=== PATIENT | male | born 1975 | race Caucasian/White ===

== ENCOUNTER 2018-04-18 13:59 | Inpatient (IN) | payer BC ==
[~2018-04-18] VITALS: Ht 185.4 cm; Wt 113.1 kg
[~2018-04-18 13:59] MED LIST: DOXY100C2 PO; IBUP-15 PO
--- OUTSIDE RECORDS SUMMARY | 2018-04-18 14:06 | XMS REPORT | CCD ---
Author Author [facility] Organization [facility] Address [address] [place] [address] Phone Care Team Providers Care Um Specialist Name Role Phone PP Unavailable CCM Unavailable Summary Purpose Interface Exchange Insurance Providers Payer name Policy type / Coverage type Covered green party ID Effective Begin Date Effective End Date Blue Cross Blue [facility] Blue Cross/Blue Shield [id number] Unknown Family history Brother Diagnosis Age At Onset Cancer Unknown Social History Social History Element Codes Description Effective Dates Number of children Unknown 1 daughter 201310/14/2016 Marital status Unknown 09/11/2014 Employment Unknown Currently employed salesperson stereo equipment 09/11/[address]: [id number] Former smoker in college 09/11/2014 Alcohol history Unknown occasionally drinks alcohol 09/11/2014 Allergies, Adverse Reactions, Alerts Allergies, Adverse Reactions, Alerts data not found Past Medical History Illness Codes Condition Status Onset Date Resolved Date Essential (primary) hypertension ICD-9: 401.9 ICD-10: I10 Active 10/13/2016 Unknown Generalized anxiety disorder ICD-9: 300.02 ICD-10: F41.1 Active 10/13/2016 Unknown Encounter for general adult medical examination without abnormal findings ICD-9: V70.0 ICD-10: Z00.00 Active 06/02/2017 Unknown Depression Unknown Active 05/31/2015 Unknown Hypertension Unknown Active 05/31/2015 Unknown Anxiety, generalized ICD-9: 300.02 Active 05/30/2015 Unknown DEPRESSIVE DISORDER NEC ICD-9: 311 Active 05/30/2015 Unknown ESSENTIAL HYPERTENSION ICD-9: 401.9 Active 05/30/2015 Unknown PREVENTIVE PHYSICAL EXAM ICD-9: V70.0 Active 09/11/2014 Unknown Problems Condition Codes Effective Dates Condition Status Essential (primary) hypertension ICD-9: 401.9 ICD-10: I10 10/13/2016 Active Generalized anxiety disorder ICD-9: 300.02 ICD-10: F41.1 10/13/2016 Active Encounter for general adult medical examination without abnormal findings ICD-9: V70.0 ICD-10: Z00.00 06/02/2017 Active Depression Unknown 05/31/2015 Active Hypertension Unknown 05/31/2015 Active Anxiety, generalized ICD-9: 300.02 05/30/2015 Active DEPRESSIVE DISORDER NEC ICD-9: 311 05/30/2015 Active ESSENTIAL HYPERTENSION ICD-9: 401.9 05/30/2015 Active PREVENTIVE PHYSICAL EXAM ICD-9: V70.0 09/11/2014 Active Medications Medication Codes Instructions Start Date Stop Date Status Fill Instructions Xanax 0.25 mg tablet RxNorm: 338190 TAKE ONE TABLET BY MOUTH EVERY 6 HOURS NEEDED FOR ANXIETY 10/27/2017 11/11/2017 Inactive Xanax 0.25 mg tablet RxNorm: 765479 1 Tablet(s) PO Q6 PRN TAKE ONE TABLET BY MOUTH EVERY 6 HOURS NEEDED FOR ANXIETY 07/28/2017 08/03/2017 Inactive losartan 100 mg-hydrochlorothiazide 12.5 mg tablet RxNorm: 190022 1 Tablet(s) PO daily 06/02/2017 05/27/2018 Active escitalopram 10 mg tablet RxNorm: 103843 1 Tablet(s) PO daily TAKE 1 TABLET BY MOUTH EVERY EVENING 06/02/2017 05/27/2018 Active Xanax 0.25 mg tablet RxNorm: 657174 Tablet(s) TAKE ONE TABLET BY MOUTH EVERY 6 HOURS NEEDED FOR ANXIETY 04/30/2017 Inactive escitalopram 10 mg tablet RxNorm: 639340 TAKE 1 TABLET BY MOUTH EVERY EVENING 04/30/2017 05/29/2017 Inactive losartan 100 mg tablet RxNorm: 438971 TAKE 1 TABLET BY MOUTH EVERY DAY 03/02/2017 06/01/2017 Inactive Xanax 0.25 mg tablet RxNorm: 044383 Tablet(s) TAKE ONE TABLET BY MOUTH EVERY 6 HOURS NEEDED FOR ANXIETY 02/03/2017 Inactive escitalopram 10 mg tablet RxNorm: 052292 TAKE 1 TABLET BY MOUTH EVERY EVENING 01/15/2017 04/29/2017 Inactive losartan 100 mg tablet RxNorm: 909653 TAKE 1 TABLET BY MOUTH EVERY DAY 11/03/2016 03/01/2017 Inactive Xanax 0.25 mg tablet RxNorm: 767995 Tablet(s) TAKE ONE TABLET BY MOUTH EVERY 6 HOURS NEEDED FOR ANXIETY 10/10/2016 Inactive Generic For:XANAX 0.25 MG TABLET 01/14/2016 8:25:34 AM escitalopram 10 mg tablet RxNorm: 359502 1 Tablet(s) PO QPM 10/03/2016 Inactive 1/2 tab q pm losartan 100 mg tablet RxNorm: 276152 1 Tablet(s) PO daily 10/03/2016 Inactive Xanax 0.25 mg tablet RxNorm: 395303 Tablet(s) TAKE ONE TABLET BY MOUTH EVERY 6 HOURS NEEDED FOR ANXIETY 02/28/201605/2016 Inactive Generic For:XANAX 0.25 MG TABLET 01/14/2016 8:25:34 AM escitalopram 10 mg tablet RxNorm: 427989 1/2 Tablet(s) PO QPM 02/28/2016 04/06/2016 Inactive 1/2 tab q pm escitalopram 10 mg tablet RxNorm: 607981 1/2 Tablet(s) 1 Tablet(s) PO QPM 02/28/2016 02/27/2016 Inactive losartan 100 mg tablet RxNorm: 913909 1 Tablet(s) PO daily 05/201604/06/2016 Inactive escitalopram 10 mg tablet RxNorm: 237574 1/2 Tablet(s) PO QPM 1 Tablet(s) PO QPM 02/28/2016 02/27/2016 Inactive Xanax 0.25 mg tablet RxNorm: 046614 TAKE ONE TABLET BY MOUTH EVERY 6 HOURS NEEDED FOR ANXIETY 01/14/2016 01/28/2016 Inactive Generic For:XANAX 0.25 MG TABLET 01/14/2016 8:25:34 AM Xanax 0.25 mg tablet RxNorm: 361802 TAKE ONE TABLET BY MOUTH EVERY 6 HOURS NEEDED FOR ANXIETY 10/15/2015 01/16/2016 Inactive Generic For:XANAX 0.25 MG TABLET 10/15/2015 8:11:02 AM escitalopram 10 mg tablet RxNorm: 115633 1 Tablet(s) PO QPM 01/14/2016 Inactive Xanax 0.25 mg tablet RxNorm: 621469 1 Tablet(s) PO Q6 as needed 08/23/2015 10/15/2015 Inactive Xanax 0.25 mg tablet RxNorm: 041671 1 Tablet(s) PO Q6 as needed 06/26/2015 08/15/2015 Inactive escitalopram 10 mg tablet RxNorm: 123101 1 Tablet(s) PO QPM 07/201509/16/2015 Inactive losartan 100 mg tablet RxNorm: 180325 1 Tablet(s) PO daily 04/201502/27/2016 Inactive losartan 50 mg tablet RxNorm: 429179 1 Tablet(s) PO daily 201403/27/2015 Inactive losartan 50 mg tablet RxNorm: 048299 1 Tablet(s) PO daily 201303/04/2015 Inactive losartan 25 mg tablet RxNorm: 348036 1 Tablet(s) PO daily 201310/01/2014 Inactive losartan 25 mg tablet RxNorm: 283046 1 Tablet(s) PO daily 201310/23/2014 Inactive Multiple Vitamin oral RxNorm: 01301 oral No Start Date Active Fish Oil 1,000 mg capsule RxNorm: 1 Capsule(s) PO daily No Start Date Active aspirin, buffered 81 mg tablet RxNorm: 423321 1 Tablet(s) PO daily No Start Date Active Xanax 0.25 mg tablet RxNorm: 752294 1 Tablet(s) PO Q6 as needed No Start Date 06/25/2015 Inactive Medication Administered No Medication Administered data Immunizations No Immunization data Assessments Condition Codes Effective Dates Generalized anxiety disorder ICD-10: F41.1 ICD-9: 300.02 01/06/2018 Essential (primary) hypertension ICD-10: I10 ICD-9: 401.9 01/06/2018 Encounter for general adult medical examination without abnormal findings ICD-10: Z00.00 ICD-9: V70.0 06/02/2017 Anxiety, generalized ICD-9: 300.02 2014 DEPRESSIVE DISORDER NEC ICD-9: 311 2014 ESSENTIAL HYPERTENSION ICD-9: 401.9 05/31 PREVENTIVE PHYSICAL EXAM ICD-9: V70.0 Reason For Visit Reason For Visit Effective Dates Notes hypertension 01/06/2018 blood pressure followup 06/29/2017 anxiety 06/02/2017 anxiety 10/14/2016 anxiety 02/28/2016 medication follow up 06/26/2015 anxiety 05/31/2015 skin lesion 09/11/2014 has skin tag near right eye Results No Results data Review of Systems System Result Effective Dates Constitutional No recent illness 2017 Constitutional No chills 01/06/2018 Constitutional No diaphoresis 01/06/2018 Constitutional fatigue 01/06/2018 Constitutional No fever 01/06/2018 Constitutional No insomnia 01/06/2018 Constitutional No malaise 01/06/2018 Constitutional weight gain 01/06/2018 Eyes No eye discharge 01/06/2018 Eyes No eye erythema 01/06/2018 Ears/Nose/Throat/Neck No dizziness 2017 Ears/Nose/Throat/Neck No headache 2017 Cardiovascular No chest pain/pressure Cardiovascular No dyspnea 01/06/2018 Respiratory No cough 01/06/2018 Gastrointestinal No abdominal pain 2017 Neurologic No alteration of consciousness 01/06/2018 Psychiatric anxiety 01/06/2018 Constitutional No recent illness 2016 Constitutional No chills 06/29/2017 Constitutional No diaphoresis 06/29/2017 Constitutional fatigue 06/29/2017 Constitutional No fever 06/29/2017 Constitutional No insomnia 06/29/2017 Constitutional No malaise 06/29/2017 Constitutional weight gain 06/29/2017 Eyes No eye discharge 06/29/2017 Eyes No eye erythema 06/29/2017 Ears/Nose/Throat/Neck No dizziness 2016 Ears/Nose/Throat/Neck No headache 2016 Cardiovascular No chest pain/pressure 05/2017 Cardiovascular No dyspnea 06/29/2017 Respiratory No cough 06/29/2017 Neurologic No alteration of consciousness 06/29/2017 Psychiatric anxiety 06/29/2017 Gastrointestinal No abdominal pain 2016 Constitutional No recent illness 2016 Constitutional No anorexia 06/02/2017 Constitutional No night sweats 2016 Constitutional No chills 06/02/2017 Constitutional No diaphoresis 06/02/2017 Constitutional No fatigue 06/02/2017 Constitutional No fever 06/02/2017 Constitutional No insomnia 06/02/2017 Constitutional No malaise 06/02/2017 Constitutional No weight loss 06/02/2017 Constitutional No weight gain 06/02/2017 Eyes No blindness 06/02/2017 Eyes No vision change 06/02/2017 Ears/Nose/Throat/Neck No dental pain 09/2017 Ears/Nose/Throat/Neck No dizziness 2016 Ears/Nose/Throat/Neck No dysphagia 2016 Ears/Nose/Throat/Neck No headache 2016 Ears/Nose/Throat/Neck No hearing loss 09/2017 Ears/Nose/Throat/Neck No nasal allergies 06/02/2017 Ears/Nose/Throat/Neck No postnasal drip 06/02/2017 Ears/Nose/Throat/Neck No sinus congestion 06/02/2017 Ears/Nose/Throat/Neck No sore throat 09/2017 Cardiovascular No chest pain/pressure 09/2017 Cardiovascular No dyspnea 06/02/2017 Cardiovascular No edema 06/02/2017 Cardiovascular No exercise intolerance Cardiovascular No near-syncope/dizziness 06/02/2017 Respiratory No chest congestion 2016 Respiratory No chest tightness 2016 Respiratory No cough 06/02/2017 Respiratory No dyspnea 06/02/2017 Respiratory No pedal edema 06/02/2017 Gastrointestinal No abdominal pain 2016 Gastrointestinal No constipation 2016 Gastrointestinal No diarrhea 06/02/2017 Gastrointestinal No gastroesophageal reflux 06/02/2017 Gastrointestinal No nausea 06/02/2017 Gastrointestinal No vomiting 06/02/2017 Genitourinary/Nephrology No dysuria 06/02 Genitourinary/Nephrology No nocturia 09/2017 Genitourinary/Nephrology No urinary incontinence 06/02/2017 Musculoskeletal No stiffness 06/02/2017 Musculoskeletal No swelling 06/02/2017 Musculoskeletal No muscle weakness 2016 Musculoskeletal No myalgias 06/02/2017 Dermatologic No rash 06/02/2017 Dermatologic No sores 06/02/2017 Dermatologic No scar 06/02/2017 Neurologic No dizziness 06/02/2017 Neurologic No headache 06/02/2017 Neurologic No neck pain 06/02/2017 Neurologic No syncope 06/02/2017 Cardiovascular hypertension 06/02/2017 Constitutional No recent illness 2015 Constitutional No anorexia 10/14/2016 Constitutional No night sweats 2015 Constitutional No chills 10/14/2016 Constitutional No diaphoresis 10/14/2016 Constitutional fatigue 10/14/2016 Constitutional No fever 10/14/2016 Constitutional No insomnia 10/14/2016 Constitutional No malaise 10/14/2016 Constitutional No weight loss 10/14/2016 Constitutional weight gain 10/14/2016 Eyes No eye erythema 10/14/2016 Eyes No eye discharge 10/14/2016 Ears/Nose/Throat/Neck No dizziness 2015 Ears/Nose/Throat/Neck No headache 2015 Cardiovascular No chest pain/pressure Cardiovascular No dyspnea 10/14/2016 Respiratory No cough 10/14/2016 Gastrointestinal No abdominal pain 2015 Gastrointestinal No constipation 2015 Gastrointestinal No diarrhea 10/14/2016 Genitourinary/Nephrology No dysuria 10/14 Musculoskeletal No joint complaint 2015 Dermatologic No rash 10/14/2016 Neurologic No alteration of consciousness 10/14/2016 Psychiatric anxiety 10/14/2016 Constitutional No recent illness 2015 Constitutional No anorexia 02/28/2016 Constitutional No night sweats 2015 Constitutional No chills 02/28/2016 Constitutional No diaphoresis 02/28/2016 Constitutional No fatigue 02/28/2016 Constitutional No insomnia 02/28/2016 Constitutional No malaise 02/28/2016 Constitutional No fever 02/28/2016 Constitutional No weight loss 02/28/2016 Constitutional No weight gain 02/28/2016 Eyes No blindness 02/28/2016 Eyes No vision change 02/28/2016 Ears/Nose/Throat/Neck No dental pain 05/2016 Ears/Nose/Throat/Neck No dizziness 2015 Ears/Nose/Throat/Neck No dysphagia 2015 Ears/Nose/Throat/Neck No headache 2015 Ears/Nose/Throat/Neck No hearing loss 05/2016 Ears/Nose/Throat/Neck No nasal allergies 02/28/2016 Ears/Nose/Throat/Neck No postnasal drip 02/28/2016 Ears/Nose/Throat/Neck No sinus congestion 02/28/2016 Ears/Nose/Throat/Neck No sore throat 05/2016 Cardiovascular No chest pain/pressure 05/2016 Cardiovascular No dyspnea 02/28/2016 Cardiovascular No edema 02/28/2016 Cardiovascular No exercise intolerance Cardiovascular No near-syncope/dizziness 02/28/2016 Respiratory No chest congestion 2015 Respiratory No chest tightness 2015 Respiratory No cough 02/28/2016 Respiratory No dyspnea 02/28/2016 Respiratory No pedal edema 02/28/2016 Gastrointestinal No abdominal pain 2015 Gastrointestinal No constipation 2015 Gastrointestinal No diarrhea 02/28/2016 Gastrointestinal No gastroesophageal reflux 02/28/2016 Gastrointestinal No nausea 02/28/2016 Gastrointestinal No vomiting 02/28/2016 Genitourinary/Nephrology No dysuria 02/27 Genitourinary/Nephrology No nocturia 05/2016 Genitourinary/Nephrology No urinary incontinence 02/28/2016 Musculoskeletal No stiffness 02/28/2016 Musculoskeletal No swelling 02/28/2016 Musculoskeletal No muscle weakness 2015 Musculoskeletal No myalgias 02/28/2016 Dermatologic No rash 02/28/2016 Dermatologic No sores 02/28/2016 Dermatologic No scar 02/28/2016 Neurologic No dizziness 02/28/2016 Neurologic No headache 02/28/2016 Neurologic No neck pain 02/28/2016 Neurologic No syncope 02/28/2016 Constitutional No recent illness 2014 Constitutional No chills 06/26/2015 Constitutional No fatigue 06/26/2015 Constitutional No fever 06/26/2015 Constitutional No malaise 06/26/2015 Eyes No blindness 06/26/2015 Eyes No vision change 06/26/2015 Ears/Nose/Throat/Neck No dental pain 02/2015 Ears/Nose/Throat/Neck No dizziness 2014 Ears/Nose/Throat/Neck No dysphagia 2014 Ears/Nose/Throat/Neck No headache 2014 Ears/Nose/Throat/Neck No hearing loss 02/2015 Ears/Nose/Throat/Neck No nasal allergies 06/26/2015 Ears/Nose/Throat/Neck No sore throat 02/2015 Ears/Nose/Throat/Neck No postnasal drip 06/26/2015 Ears/Nose/Throat/Neck No sinus congestion 06/26/2015 Cardiovascular No chest pain/pressure 02/2015 Cardiovascular No dyspnea 06/26/2015 Cardiovascular No edema 06/26/2015 Cardiovascular No exercise intolerance Cardiovascular No fatigue 06/26/2015 Cardiovascular No near-syncope/dizziness 06/26/2015 Respiratory No chest congestion 2014 Respiratory No chest tightness 2014 Respiratory No cough 06/26/2015 Respiratory No dyspnea 06/26/2015 Respiratory No pedal edema 06/26/2015 Gastrointestinal No abdominal pain 2014 Gastrointestinal No constipation 2014 Gastrointestinal No diarrhea 06/26/2015 Gastrointestinal No gastroesophageal reflux 06/26/2015 Gastrointestinal No nausea 06/26/2015 Gastrointestinal No vomiting 06/26/2015 Genitourinary/Nephrology No dysuria 06/26 Genitourinary/Nephrology No nocturia 02/2015 Genitourinary/Nephrology No urinary incontinence 06/26/2015 Musculoskeletal No stiffness 06/26/2015 Musculoskeletal No swelling 06/26/2015 Musculoskeletal No muscle weakness 2014 Musculoskeletal No myalgias 06/26/2015 Dermatologic No rash 06/26/2015 Dermatologic No sores 06/26/2015 Dermatologic No scar 06/26/2015 Neurologic No dizziness 06/26/2015 Neurologic No headache 06/26/2015 Neurologic No neck pain 06/26/2015 Neurologic No syncope 06/26/2015 Constitutional No insomnia 06/26/2015 Constitutional No insomnia 05/31/2015 Cardiovascular No chest pain/pressure 07/2015 Cardiovascular No dyspnea 05/31/2015 Cardiovascular No edema 05/31/2015 Respiratory No cough 05/31/2015 Respiratory No chest congestion 2014 Gastrointestinal No constipation 2014 Gastrointestinal No diarrhea 05/31/2015 Constitutional No recent illness 2014 Constitutional No chills 05/31/2015 Constitutional No fatigue 05/31/2015 Constitutional No fever 05/31/2015 Constitutional No malaise 05/31/2015 Eyes No blindness 05/31/2015 Eyes No vision change 05/31/2015 Ears/Nose/Throat/Neck No dental pain 07/2015 Ears/Nose/Throat/Neck No dizziness 2014 Ears/Nose/Throat/Neck No dysphagia 2014 Ears/Nose/Throat/Neck No headache 2014 Ears/Nose/Throat/Neck No hearing loss 07/2015 Ears/Nose/Throat/Neck No nasal allergies 05/31/2015 Ears/Nose/Throat/Neck No sore throat 07/2015 Ears/Nose/Throat/Neck No postnasal drip 05/31/2015 Ears/Nose/Throat/Neck No sinus congestion 05/31/2015 Cardiovascular No exercise intolerance Cardiovascular No fatigue 05/31/2015 Cardiovascular No near-syncope/dizziness 05/31/2015 Respiratory No chest tightness 2014 Respiratory No dyspnea 05/31/2015 Respiratory No pedal edema 05/31/2015 Gastrointestinal No abdominal pain 2014 Gastrointestinal No gastroesophageal reflux 05/31/2015 Gastrointestinal No nausea 05/31/2015 Gastrointestinal No vomiting 05/31/2015 Genitourinary/Nephrology No dysuria 05/31 Genitourinary/Nephrology No nocturia 07/2015 Genitourinary/Nephrology No urinary incontinence 05/31/2015 Musculoskeletal No stiffness 05/31/2015 Musculoskeletal No swelling 05/31/2015 Musculoskeletal No muscle weakness 2014 Musculoskeletal No myalgias 05/31/2015 Dermatologic No rash 05/31/2015 Dermatologic No sores 05/31/2015 Dermatologic No scar 05/31/2015 Neurologic No dizziness 05/31/2015 Neurologic No headache 05/31/2015 Neurologic No neck pain 05/31/2015 Neurologic No syncope 05/31/2015 Psychiatric No anxiety 05/31/2015 Psychiatric No depression 05/31/2015 Constitutional No chills 09/11/2014 Constitutional No fatigue 09/11/2014 Constitutional No fever 09/11/2014 Constitutional No insomnia 09/11/2014 Constitutional No malaise 09/11/2014 Constitutional No night sweats 2013 Constitutional No recent illness 2013 Eyes No vision change 09/11/2014 Ears/Nose/Throat/Neck No dizziness 2013 Ears/Nose/Throat/Neck No hearing loss Cardiovascular No chest pain/pressure Cardiovascular No edema 09/11/2014 Cardiovascular No exercise intolerance Cardiovascular No fatigue 09/11/2014 Cardiovascular No hypertension 2013 Cardiovascular No palpitations 2013 Respiratory No chest tightness 2013 Respiratory No cigarette smoking 2013 Respiratory No cough 09/11/2014 Respiratory No dyspnea on exertion 2013 Gastrointestinal No abdominal pain 2013 Gastrointestinal No constipation 2013 Gastrointestinal No diarrhea 09/11/2014 Gastrointestinal No hematochezia 2013 Genitourinary/Nephrology No impotence Genitourinary/Nephrology No urinary frequency 09/11/2014 Genitourinary/Nephrology No urinary incontinence 09/11/2014 Genitourinary/Nephrology No urinary urgency 09/11/2014 Musculoskeletal No arthralgia(s) 2013 Musculoskeletal No joint complaint 2013 Musculoskeletal No muscle weakness 2013 Musculoskeletal No stiffness 09/11/2014 Neurologic No ataxia 09/11/2014 Neurologic No dizziness 09/11/2014 Neurologic No dyskinesia or tremor 2013 Neurologic No gait abnormality 2013 Psychiatric No anxiety 09/11/2014 Psychiatric No depression 09/11/2014 Endocrine No polydipsia 09/11/2014 Endocrine No polyuria 09/11/2014 Hematologic/Lymphatic No abnormal bleeding and bruising 09/11/2014 Hematologic/Lymphatic No abnormal ecchymoses 09/11/2014 Dermatologic mole change 09/11/2014 Constitutional weight gain 09/11/2014 Respiratory snoring 09/11/2014 Physical Exam Exam Name System Name Item Name Status Result Effective Dates Notes Full Exam - General 1994 Constitutional general appearance Development: well developed 01/06/2018 None Full Exam - General 1994 Constitutional general appearance Development: appears stated age 0201/06/2018 None Full Exam - General 1994 Constitutional general appearance Hygiene/Attention to Grooming: good hygiene 01/06/2018 None Full Exam - General 1994 Eyes conjunctiva /eyelids Overall: conjunctiva clear 01/06/2018 None Full Exam - General 1994 Eyes conjunctiva /eyelids Overall: cornea clear 01/06/2018 None Full Exam - General 1994 Eyes conjunctiva /eyelids Overall: eyelids normal 01/06/2018 None Full Exam - General 1994 Eyes pupils and irises Overall: pupils equal, round, reactive to light and accomodation 01/06/2018 None Full Exam - General 1994 Ears/Nose/Throat lips/teeth/gingiva Overall: benign lips 01/06/2018 None Full Exam - General 1994 Ears/Nose/Throat lips/teeth/gingiva Overall: normal dentition 01/06/2018 None Full Exam - General 1994 Ears/Nose/Throat oral cavity/pharynx/larynx Overall: oral mucosa clear 01/06/2018 None Full Exam - General 1994 Ears/Nose/Throat oral cavity/pharynx/larynx Overall: oropharyngeal mucosa clear 01/06/2018 None Full Exam - General 1994 Ears/Nose/Throat oral cavity/pharynx/larynx Overall: hypopharynx benign 01/06/2018 None Full Exam - General 1994 Ears/Nose/Throat oral cavity/pharynx/larynx Overall: no masses 01/06/2018 None Full Exam - General 1994 Respiratory auscultation Overall: breath sounds clear bilaterally 01/06/2018 None Full Exam - General 1994 Respiratory respiratory effort/rhythm Overall: no retractions 01/06/2018 None Full Exam - General 1994 Respiratory respiratory effort/rhythm Overall: normal rate 01/06/2018 None Full Exam - General 1994 Cardiovascular extremities Overall: no clubbing 01/06/2018 None Full Exam - General 1994 Cardiovascular auscultation of heart Overall: regular rate 01/06/2018 None Full Exam - General 1994 Cardiovascular auscultation of heart Overall: normal heart sounds 01/06/2018 None Full Exam - General 1994 Musculoskeletal spine, ribs and pelvis Overall: good posture 01/06/2018 None Full Exam - General 1994 Musculoskeletal head and neck Overall: head atraumatic 01/06/2018 None Full Exam - General 1994 Musculoskeletal head and neck Overall: cervical spine benign 01/06/2018 None Full Exam - General 1994 Psychiatric orientation/consciousness Overall: oriented to person, place and time 01/06/2018 None Full Exam - General 1994 Psychiatric mood and affect Overall: normal mood and affect 01/06/2018 None Full Exam - General 1994 Abdomen abdominal exam Overall: no tenderness 01/06/2018 None Full Exam - General 1994 Abdomen abdominal exam Overall: normal bowel sounds 01/06/2018 None Full Exam - General 1994 Constitutional general appearance Development: well developed 06/29/2017 None Full Exam - General 1994 Constitutional general appearance Development: appears stated age 0806/29/2017 None Full Exam - General 1994 Constitutional general appearance Hygiene/Attention to Grooming: good hygiene 06/29/2017 None Full Exam - General 1994 Eyes conjunctiva /eyelids Overall: conjunctiva clear 06/29/2017 None Full Exam - General 1994 Eyes conjunctiva /eyelids Overall: cornea clear 06/29/2017 None Full Exam - General 1994 Eyes conjunctiva /eyelids Overall: eyelids normal 06/29/2017 None Full Exam - General 1994 Eyes pupils and irises Overall: pupils equal, round, reactive to light and accomodation 06/29/2017 None Full Exam - General 1995 Ears/Nose/Throat lips/teeth/gingiva Overall: benign lips 06/29/2017 None Full Exam - General 1995 Ears/Nose/Throat lips/teeth/gingiva Overall: normal dentition 06/29/2017 None Full Exam - General 1995 Ears/Nose/Throat oral cavity/pharynx/larynx Overall: oral mucosa clear 06/29/2017 None Full Exam - General 1994 Ears/Nose/Throat oral cavity/pharynx/larynx Overall: oropharyngeal mucosa clear 06/29/2017 None Full Exam - General 1995 Ears/Nose/Throat oral cavity/pharynx/larynx Overall: hypopharynx benign 06/29/2017 None Full Exam - General 1994 Ears/Nose/Throat oral cavity/pharynx/larynx Overall: no masses 06/29/2017 None Full Exam - General 1994 Respiratory auscultation Overall: breath sounds clear bilaterally 06/29/2017 None Full Exam - General 1994 Respiratory respiratory effort/rhythm Overall: no retractions 06/29/2017 None Full Exam - General 1994 Respiratory respiratory effort/rhythm Overall: normal rate 06/29/2017 None Full Exam - General 1994 Cardiovascular extremities Overall: no clubbing 06/29/2017 None Full Exam - General 1994 Cardiovascular auscultation of heart Overall: regular rate 06/29/2017 None Full Exam - General 1994 Cardiovascular auscultation of heart Overall: normal heart sounds 06/29/2017 None Full Exam - General 1994 Musculoskeletal spine, ribs and pelvis Overall: good posture 06/29/2017 None Full Exam - General 1994 Musculoskeletal head and neck Overall: head atraumatic 06/29/2017 None Full Exam - General 1994 Musculoskeletal head and neck Overall: cervical spine benign 06/29/2017 None Full Exam - General 1994 Psychiatric orientation/consciousness Overall: oriented to person, place and time 06/29/2017 None Full Exam - General 1994 Psychiatric mood and affect Overall: normal mood and affect 06/29/2017 None Full Exam - General 1994 Constitutional general appearance Development: well developed 06/02/2017 None Full Exam - General 1994 Constitutional general appearance Development: appears stated age 0706/02/2017 None Full Exam - General 1994 Constitutional general appearance Hygiene/Attention to Grooming: good hygiene 06/02/2017 None Full Exam - General 1994 Eyes conjunctiva /eyelids Overall: conjunctiva clear 06/02/2017 None Full Exam - General 1994 Eyes conjunctiva /eyelids Overall: cornea clear 06/02/2017 None Full Exam - General 1994 Eyes conjunctiva /eyelids Overall: eyelids normal 06/02/2017 None Full Exam - General 1994 Eyes pupils and irises Overall: pupils equal, round, reactive to light and accomodation 06/02/2017 None Full Exam - General 1994 Ears/Nose/Throat otoscopic exam Overall: external auditory canals clear 06/02/2017 None Full Exam - General 1994 Ears/Nose/Throat otoscopic exam Overall: tympanic membranes clear 06/02/2017 None Full Exam - General 1994 Ears/Nose/Throat lips/teeth/gingiva Overall: benign lips 06/02/2017 None Full Exam - General 1994 Ears/Nose/Throat lips/teeth/gingiva Overall: normal dentition 06/02/2017 None Full Exam - General 1994 Ears/Nose/Throat oral cavity/pharynx/larynx Overall: oral mucosa clear 06/02/2017 None Full Exam - General 1994 Ears/Nose/Throat oral cavity/pharynx/larynx Overall: oropharyngeal mucosa clear 06/02/2017 None Full Exam - General 1994 Ears/Nose/Throat oral cavity/pharynx/larynx Overall: hypopharynx benign 06/02/2017 None Full Exam - General 1994 Ears/Nose/Throat oral cavity/pharynx/larynx Overall: no masses 06/02/2017 None Full Exam - General 1994 Respiratory auscultation Overall: breath sounds clear bilaterally 06/02/2017 None Full Exam - General 1994 Respiratory respiratory effort/rhythm Overall: no retractions 06/02/2017 None Full Exam - General 1994 Respiratory respiratory effort/rhythm Overall: normal rate 06/02/2017 None Full Exam - General 1994 Cardiovascular extremities Overall: no clubbing 06/02/2017 None Full Exam - General 1994 Cardiovascular auscultation of heart Overall: regular rate 06/02/2017 None Full Exam - General 1994 Cardiovascular auscultation of heart Overall: normal heart sounds 06/02/2017 None Full Exam - General 1994 Abdomen abdominal exam Overall: no tenderness 06/02/2017 None Full Exam - General 1994 Abdomen abdominal exam Overall: normal bowel sounds 06/02/2017 None Full Exam - General 1994 Lymphatic neck nodes Overall: anterior cervical chain benign 06/02/2017 None Full Exam - General 1994 Lymphatic neck nodes Overall: posterior cervical chain benign 06/02/2017 None Full Exam - General 1994 Musculoskeletal spine, ribs and pelvis Overall: spine benign 06/02/2017 None Full Exam - General 1994 Musculoskeletal spine, ribs and pelvis Overall: sacroiliac joint benign 06/02/2017 None Full Exam - General 1994 Musculoskeletal spine, ribs and pelvis Overall: good posture 06/02/2017 None Full Exam - General 1994 Musculoskeletal head and neck Overall: head atraumatic 06/02/2017 None Full Exam - General 1994 Musculoskeletal head and neck Overall: cervical spine benign 06/02/2017 None Full Exam - General 1994 Neurologic deep tendon reflexes Overall: deep tendon reflexes intact 06/02/2017 None Full Exam - General 1994 Neurologic cranial nerves Overall: crainial nerves 2 - 12 grossly intact 06/02/2017 None Full Exam - General 1994 Psychiatric orientation/consciousness Overall: oriented to person, place and time 06/02/2017 None Full Exam - General 1994 Psychiatric mood and affect Overall: normal mood and affect 06/02/2017 None Full Exam - General 1994 Constitutional general appearance Development: well developed 10/14/2016 None Full Exam - General 1994 Constitutional general appearance Development: appears stated age 1110/14/2016 None Full Exam - General 1994 Constitutional general appearance Hygiene/Attention to Grooming: good hygiene 10/14/2016 None Full Exam - General 1994 Eyes conjunctiva /eyelids Overall: conjunctiva clear 10/14/2016 None Full Exam - General 1994 Eyes conjunctiva /eyelids Overall: cornea clear 10/14/2016 None Full Exam - General 1994 Eyes conjunctiva /eyelids Overall: eyelids normal 10/14/2016 None Full Exam - General 1994 Eyes pupils and irises Overall: pupils equal, round, reactive to light and accomodation 10/14/2016 None Full Exam - General 1994 Ears/Nose/Throat otoscopic exam Overall: external auditory canals clear 10/14/2016 None Full Exam - General 1994 Ears/Nose/Throat otoscopic exam Overall: tympanic membranes clear 10/14/2016 None Full Exam - General 1994 Ears/Nose/Throat lips/teeth/gingiva Overall: benign lips 10/14/2016 None Full Exam - General 1994 Ears/Nose/Throat lips/teeth/gingiva Overall: normal dentition 10/14/2016 None Full Exam - General 1994 Ears/Nose/Throat oral cavity/pharynx/larynx Overall: oral mucosa clear 10/14/2016 None Full Exam - General 1994 Ears/Nose/Throat oral cavity/pharynx/larynx Overall: oropharyngeal mucosa clear 10/14/2016 None Full Exam - General 1994 Ears/Nose/Throat oral cavity/pharynx/larynx Overall: hypopharynx benign 10/14/2016 None Full Exam - General 1994 Ears/Nose/Throat oral cavity/pharynx/larynx Overall: no masses 10/14/2016 None Full Exam - General 1994 Respiratory auscultation Overall: breath sounds clear bilaterally 10/14/2016 None Full Exam - General 1994 Respiratory respiratory effort/rhythm Overall: no retractions 10/14/2016 None Full Exam - General 1994 Respiratory respiratory effort/rhythm Overall: normal rate 10/14/2016 None Full Exam - General 1994 Cardiovascular extremities Overall: no clubbing 10/14/2016 None Full Exam - General 1994 Cardiovascular auscultation of heart Overall: regular rate 10/14/2016 None Full Exam - General 1994 Cardiovascular auscultation of heart Overall: normal heart sounds 10/14/2016 None Full Exam - General 1994 Abdomen abdominal exam Overall: no tenderness 10/14/2016 None Full Exam - General 1994 Abdomen abdominal exam Overall: normal bowel sounds 10/14/2016 None Full Exam - General 1994 Lymphatic neck nodes Overall: anterior cervical chain benign 10/14/2016 None Full Exam - General 1994 Lymphatic neck nodes Overall: posterior cervical chain benign 10/14/2016 None Full Exam - General 1994 Musculoskeletal spine, ribs and pelvis Overall: spine benign 10/14/2016 None Full Exam - General 1994 Musculoskeletal spine, ribs and pelvis Overall: sacroiliac joint benign 10/14/2016 None Full Exam - General 1994 Musculoskeletal spine, ribs and pelvis Overall: good posture 10/14/2016 None Full Exam - General 1994 Musculoskeletal head and neck Overall: head atraumatic 10/14/2016 None Full Exam - General 1994 Musculoskeletal head and neck Overall: cervical spine benign 10/14/2016 None Full Exam - General 1994 Neurologic deep tendon reflexes Overall: deep tendon reflexes intact 10/14/2016 None Full Exam - General 1994 Neurologic cranial nerves Overall: crainial nerves 2 - 12 grossly intact 10/14/2016 None Full Exam - General 1994 Psychiatric orientation/consciousness Overall: oriented to person, place and time 10/14/2016 None Full Exam - General 1994 Psychiatric mood and affect Overall: normal mood and affect 10/14/2016 None Full Exam - General 1994 Constitutional general appearance Development: well developed 02/28/2016 None Full Exam - General 1994 Constitutional general appearance Development: appears stated age 0402/28/2016 None Full Exam - General 1994 Constitutional general appearance Hygiene/Attention to Grooming: good hygiene 02/28/2016 None Full Exam - General 1994 Eyes conjunctiva /eyelids Overall: conjunctiva clear 02/28/2016 None Full Exam - General 1994 Eyes conjunctiva /eyelids Overall: cornea clear 02/28/2016 None Full Exam - General 1994 Eyes conjunctiva /eyelids Overall: eyelids normal 02/28/2016 None Full Exam - General 1994 Eyes pupils and irises Overall: pupils equal, round, reactive to light and accomodation 02/28/2016 None Full Exam - General 1994 Ears/Nose/Throat otoscopic exam Overall: external auditory canals clear 02/28/2016 None Full Exam - General 1994 Ears/Nose/Throat otoscopic exam Overall: tympanic membranes clear 02/28/2016 None Full Exam - General 1994 Ears/Nose/Throat lips/teeth/gingiva Overall: benign lips 02/28/2016 None Full Exam - General 1994 Ears/Nose/Throat lips/teeth/gingiva Overall: normal dentition 02/28/2016 None Full Exam - General 1994 Ears/Nose/Throat oral cavity/pharynx/larynx Overall: oral mucosa clear 02/28/2016 None Full Exam - General 1994 Ears/Nose/Throat oral cavity/pharynx/larynx Overall: oropharyngeal mucosa clear 02/28/2016 None Full Exam - General 1994 Ears/Nose/Throat oral cavity/pharynx/larynx Overall: hypopharynx benign 02/28/2016 None Full Exam - General 1994 Ears/Nose/Throat oral cavity/pharynx/larynx Overall: no masses 02/28/2016 None Full Exam - General 1994 Respiratory auscultation Overall: breath sounds clear bilaterally 02/28/2016 None Full Exam - General 1994 Respiratory respiratory effort/rhythm Overall: no retractions 02/28/2016 None Full Exam - General 1994 Respiratory respiratory effort/rhythm Overall: normal rate 02/28/2016 None Full Exam - General 1994 Cardiovascular extremities Overall: no clubbing 02/28/2016 None Full Exam - General 1994 Cardiovascular auscultation of heart Overall: regular rate 02/28/2016 None Full Exam - General 1994 Cardiovascular auscultation of heart Overall: normal heart sounds 02/28/2016 None Full Exam - General 1994 Abdomen abdominal exam Overall: no tenderness 02/28/2016 None Full Exam - General 1994 Abdomen abdominal exam Overall: normal bowel sounds 02/28/2016 None Full Exam - General 1994 Lymphatic neck nodes Overall: anterior cervical chain benign 02/28/2016 None Full Exam - General 1994 Lymphatic neck nodes Overall: posterior cervical chain benign 02/28/2016 None Full Exam - General 1994 Musculoskeletal spine, ribs and pelvis Overall: spine benign 02/28/2016 None Full Exam - General 1994 Musculoskeletal spine, ribs and pelvis Overall: sacroiliac joint benign 02/28/2016 None Full Exam - General 1994 Musculoskeletal spine, ribs and pelvis Overall: good posture 02/28/2016 None Full Exam - General 1994 Musculoskeletal head and neck Overall: head atraumatic 02/28/2016 None Full Exam - General 1994 Musculoskeletal head and neck Overall: cervical spine benign 02/28/2016 None Full Exam - General 1994 Neurologic deep tendon reflexes Overall: deep tendon reflexes intact 02/28/2016 None Full Exam - General 1994 Neurologic cranial nerves Overall: crainial nerves 2 - 12 grossly intact 02/28/2016 None Full Exam - General 1994 Psychiatric orientation/consciousness Overall: oriented to person, place and time 02/28/2016 None Full Exam - General 1994 Psychiatric mood and affect Overall: normal mood and affect 02/28/2016 None Full Exam - General 1994 Constitutional general appearance Development: well developed 06/26/2015 None Full Exam - General 1994 Constitutional general appearance Development: appears stated age 0806/26/2015 None Full Exam - General 1994 Constitutional general appearance Hygiene/Attention to Grooming: good hygiene 06/26/2015 None Full Exam - General 1994 Eyes conjunctiva /eyelids Overall: conjunctiva clear 06/26/2015 None Full Exam - General 1994 Eyes conjunctiva /eyelids Overall: cornea clear 06/26/2015 None Full Exam - General 1994 Eyes conjunctiva /eyelids Overall: eyelids normal 06/26/2015 None Full Exam - General 1994 Eyes pupils and irises Overall: pupils equal, round, reactive to light and accomodation 06/26/2015 None Full Exam - General 1994 Ears/Nose/Throat otoscopic exam Overall: external auditory canals clear 06/26/2015 None Full Exam - General 1994 Ears/Nose/Throat otoscopic exam Overall: tympanic membranes clear 06/26/2015 None Full Exam - General 1994 Ears/Nose/Throat lips/teeth/gingiva Overall: benign lips 06/26/2015 None Full Exam - General 1994 Ears/Nose/Throat lips/teeth/gingiva Overall: normal dentition 06/26/2015 None Full Exam - General 1994 Ears/Nose/Throat oral cavity/pharynx/larynx Overall: oral mucosa clear 06/26/2015 None Full Exam - General 1994 Ears/Nose/Throat oral cavity/pharynx/larynx Overall: oropharyngeal mucosa clear 06/26/2015 None Full Exam - General 1994 Ears/Nose/Throat oral cavity/pharynx/larynx Overall: hypopharynx benign 06/26/2015 None Full Exam - General 1994 Ears/Nose/Throat oral cavity/pharynx/larynx Overall: no masses 06/26/2015 None Full Exam - General 1994 Respiratory auscultation Overall: breath sounds clear bilaterally 06/26/2015 None Full Exam - General 1994 Respiratory respiratory effort/rhythm Overall: no retractions 06/26/2015 None Full Exam - General 1994 Respiratory respiratory effort/rhythm Overall: normal rate 06/26/2015 None Full Exam - General 1994 Cardiovascular extremities Overall: no clubbing 06/26/2015 None Full Exam - General 1994 Cardiovascular auscultation of heart Overall: regular rate 06/26/2015 None Full Exam - General 1994 Cardiovascular auscultation of heart Overall: normal heart sounds 06/26/2015 None Full Exam - General 1994 Abdomen abdominal exam Overall: no tenderness 06/26/2015 None Full Exam - General 1994 Abdomen abdominal exam Overall: normal bowel sounds 06/26/2015 None Full Exam - General 1994 Lymphatic neck nodes Overall: anterior cervical chain benign 06/26/2015 None Full Exam - General 1994 Lymphatic neck nodes Overall: posterior cervical chain benign 06/26/2015 None Full Exam - General 1994 Musculoskeletal spine, ribs and pelvis Overall: spine benign 06/26/2015 None Full Exam - General 1994 Musculoskeletal spine, ribs and pelvis Overall: sacroiliac joint benign 06/26/2015 None Full Exam - General 1994 Musculoskeletal spine, ribs and pelvis Overall: good posture 06/26/2015 None Full Exam - General 1994 Musculoskeletal head and neck Overall: head atraumatic 06/26/2015 None Full Exam - General 1994 Musculoskeletal head and neck Overall: cervical spine benign 06/26/2015 None Full Exam - General 1994 Neurologic deep tendon reflexes Overall: deep tendon reflexes intact 06/26/2015 None Full Exam - General 1994 Neurologic cranial nerves Overall: crainial nerves 2 - 12 grossly intact 06/26/2015 None Full Exam - General 1994 Psychiatric orientation/consciousness Overall: oriented to person, place and time 06/26/2015 None Full Exam - General 1994 Psychiatric mood and affect Overall: normal mood and affect 06/26/2015 None Full Exam - General 1994 Constitutional general appearance Development: well developed 05/31/2015 None Full Exam - General 1994 Constitutional general appearance Development: appears stated age 0705/31/2015 None Full Exam - General 1994 Constitutional general appearance Hygiene/Attention to Grooming: good hygiene 05/31/2015 None Full Exam - General 1994 Eyes conjunctiva /eyelids Overall: conjunctiva clear 05/31/2015 None Full Exam - General 1994 Eyes conjunctiva /eyelids Overall: cornea clear 05/31/2015 None Full Exam - General 1994 Eyes conjunctiva /eyelids Overall: eyelids normal 05/31/2015 None Full Exam - General 1994 Eyes pupils and irises Overall: pupils equal, round, reactive to light and accomodation 05/31/2015 None Full Exam - General 1994 Ears/Nose/Throat otoscopic exam Overall: external auditory canals clear 05/31/2015 None Full Exam - General 1994 Ears/Nose/Throat otoscopic exam Overall: tympanic membranes clear 05/31/2015 None Full Exam - General 1994 Ears/Nose/Throat lips/teeth/gingiva Overall: benign lips 05/31/2015 None Full Exam - General 1994 Ears/Nose/Throat lips/teeth/gingiva Overall: normal dentition 05/31/2015 None Full Exam - General 1994 Ears/Nose/Throat oral cavity/pharynx/larynx Overall: oral mucosa clear 05/31/2015 None Full Exam - General 1994 Ears/Nose/Throat oral cavity/pharynx/larynx Overall: oropharyngeal mucosa clear 05/31/2015 None Full Exam - General 1994 Ears/Nose/Throat oral cavity/pharynx/larynx Overall: hypopharynx benign 05/31/2015 None Full Exam - General 1994 Ears/Nose/Throat oral cavity/pharynx/larynx Overall: no masses 05/31/2015 None Full Exam - General 1994 Respiratory auscultation Overall: breath sounds clear bilaterally 05/31/2015 None Full Exam - General 1994 Respiratory respiratory effort/rhythm Overall: no retractions 05/31/2015 None Full Exam - General 1994 Respiratory respiratory effort/rhythm Overall: normal rate 05/31/2015 None Full Exam - General 1994 Cardiovascular extremities Overall: no clubbing 05/31/2015 None Full Exam - General 1994 Cardiovascular auscultation of heart Overall: regular rate 05/31/2015 None Full Exam - General 1994 Cardiovascular auscultation of heart Overall: normal heart sounds 05/31/2015 None Full Exam - General 1994 Abdomen abdominal exam Overall: no tenderness 05/31/2015 None Full Exam - General 1994 Abdomen abdominal exam Overall: normal bowel sounds 05/31/2015 None Full Exam - General 1994 Lymphatic neck nodes Overall: anterior cervical chain benign 05/31/2015 None Full Exam - General 1994 Lymphatic neck nodes Overall: posterior cervical chain benign 05/31/2015 None Full Exam - General 1994 Musculoskeletal spine, ribs and pelvis Overall: spine benign 05/31/2015 None Full Exam - General 1994 Musculoskeletal spine, ribs and pelvis Overall: sacroiliac joint benign 05/31/2015 None Full Exam - General 1994 Musculoskeletal spine, ribs and pelvis Overall: good posture 05/31/2015 None Full Exam - General 1994 Musculoskeletal head and neck Overall: head atraumatic 05/31/2015 None Full Exam - General 1994 Musculoskeletal head and neck Overall: cervical spine benign 05/31/2015 None Full Exam - General 1994 Integument inspection of skin Overall: few scattered moles, no gross abnormalities 05/31/2015 None Full Exam - General 1994 Neurologic deep tendon reflexes Overall: deep tendon reflexes intact 05/31/2015 None Full Exam - General 1994 Neurologic cranial nerves Overall: crainial nerves 2 - 12 grossly intact 05/31/2015 None Full Exam - General 1994 Psychiatric orientation/consciousness Overall: oriented to person, place and time 05/31/2015 None Full Exam - General 1994 Psychiatric mood and affect Overall: normal mood and affect 05/31/2015 None Full Exam - General 1994 Constitutional general appearance Development: appears stated age 1009/11/2014 None Full Exam - General 1994 Constitutional general appearance Development: well developed 09/11/2014 None Full Exam - General 1994 Constitutional general appearance Hygiene/Attention to Grooming: good hygiene 09/11/2014 None Full Exam - General 1994 Eyes conjunctiva /eyelids Overall: conjunctiva clear 09/11/2014 None Full Exam - General 1994 Eyes conjunctiva /eyelids Overall: eyelids normal 09/11/2014 None Full Exam - General 1994 Eyes pupils and irises Overall: pupils equal, round, reactive to light and accomodation 09/11/2014 None Full Exam - General 1994 Ears/Nose/Throat external ear Overall: normal appearance 09/11/2014 None Full Exam - General 1994 Ears/Nose/Throat external nose Overall: benign appearance 09/11/2014 None Full Exam - General 1994 Ears/Nose/Throat otoscopic exam Overall: external auditory canals clear 09/11/2014 None Full Exam - General 1994 Ears/Nose/Throat otoscopic exam Overall: tympanic membranes clear 09/11/2014 None Full Exam - General 1994 Ears/Nose/Throat hearing assessment Overall: hearing intact bilaterally 09/11/2014 None Full Exam - General 1994 Ears/Nose/Throat lips/teeth/gingiva Overall: benign gingiva 09/11/2014 None Full Exam - General 1994 Ears/Nose/Throat lips/teeth/gingiva Overall: benign lips 09/11/2014 None Full Exam - General 1994 Ears/Nose/Throat lips/teeth/gingiva Overall: normal dentition 09/11/2014 None Full Exam - General 1994 Ears/Nose/Throat oral cavity/pharynx/larynx Overall: oral mucosa clear 09/11/2014 None Full Exam - General 1994 Ears/Nose/Throat oral cavity/pharynx/larynx Overall: oropharyngeal mucosa clear 09/11/2014 None Full Exam - General 1994 Neck thyroid Overall: no mass lesions 09/11/2014 None Full Exam - General 1994 Neck thyroid Overall: nontender 2013 None Full Exam - General 1994 Respiratory auscultation Overall: breath sounds clear bilaterally 09/11/2014 None Full Exam - General 1994 Respiratory respiratory effort/rhythm Overall: no retractions 09/11/2014 None Full Exam - General 1994 Respiratory respiratory effort/rhythm Overall: normal rate 09/11/2014 None Full Exam - General 1994 Cardiovascular inspection of carotid pulses Overall: strong, bilaterally equal, no bruits 09/11/2014 None Full Exam - General 1994 Cardiovascular extremities Overall: no clubbing 09/11/2014 None Full Exam - General 1994 Cardiovascular auscultation of heart Overall: no murmurs 09/11/2014 None Full Exam - General 1994 Cardiovascular auscultation of heart Overall: normal heart sounds 09/11/2014 None Full Exam - General 1994 Cardiovascular auscultation of heart Overall: regular rate 09/11/2014 None Full Exam - General 1994 Abdomen abdominal exam Overall: no tenderness 09/11/2014 None Full Exam - General 1994 Abdomen abdominal exam Overall: normal bowel sounds 09/11/2014 None Full Exam - General 1994 Abdomen liver and spleen exam Overall: no hepatosplenomegaly 09/11/2014 None Full Exam - General 1994 Lymphatic neck nodes Overall: anterior cervical chain benign 09/11/2014 None Full Exam - General 1994 Lymphatic neck nodes Overall: posterior cervical chain benign 09/11/2014 None Full Exam - General 1994 Musculoskeletal digits and nails Digits: a normal exam 09/11/2014 None Full Exam - General 1994 Musculoskeletal spine, ribs and pelvis Overall: good posture 09/11/2014 None Full Exam - General 1994 Musculoskeletal spine, ribs and pelvis Overall: spine benign 09/11/2014 None Full Exam - General 1994 Musculoskeletal gait and station Overall: normal gait 09/11/2014 None Full Exam - General 1994 Musculoskeletal gait and station Overall: normal station 09/11/2014 None Full Exam - General 1994 Musculoskeletal head and neck Overall: cervical spine benign 09/11/2014 None Full Exam - General 1994 Musculoskeletal head and neck Overall: head atraumatic 09/11/2014 None Full Exam - General 1994 Neurologic deep tendon reflexes Overall: deep tendon reflexes intact 09/11/2014 None Full Exam - General 1994 Neurologic cranial nerves Overall: crainial nerves 2 - 12 grossly intact 09/11/2014 None Full Exam - General 1994 Psychiatric orientation/consciousness Overall: oriented to person, place and time 09/11/2014 None Full Exam - General 1994 Psychiatric mood and affect Overall: normal mood and affect 09/11/2014 None Full Exam - General 1994 Integument inspection of skin Overall: few scattered moles, - skin tag by right eyelid 09/11/2014 None Procedures No Procedures data Vital Signs Date Vital 01/06/2018 Blood Pressure 1: 126/82 Code : 8480-6 BMI: 35.7 Code : 00051-6 Heart Rate 1 : 86 bpm Height: 6' SpO2: 97% Weight: 263 lbs 06/29/2017 Blood Pressure 1: 124/80 Code : 8480-6 BMI: 33.4 Code : 55490-1 Heart Rate 1 : 72 bpm Height: 6' SpO2: 98% Weight: 246 lbs 06/02/2017 Blood Pressure 1: 152/88 Code : 8480-6 Blood Pressure 1: 142/80 Code: 8480-6 BMI: 32.8 Code: 95624-4 Heart Rate 1: 70 bpm Height: 6' SpO2: 97% Weight: 242 lbs 10/14/2016 Blood Pressure 1: 130/70 Code : 8480-6 BMI: 35.0 Code : 72845-2 Heart Rate 1 : 56 bpm Height: 6' Weight: 258 lbs 02/28/2016 Blood Pressure 1: 128/80 Code : 8480-6 BMI: 33.8 Code : 50756-5 Heart Rate 1 : 69 bpm Height: 6' SpO2: 93% Weight: 249 lbs 06/26/2015 Blood Pressure 1: 142/70 Code : 8480-6 BMI: 30.2 Code : 07089-6 Heart Rate 1 : 88 bpm Height: 6' SpO2: 97% Weight: 223 lbs 05/31/2015 Blood Pressure 1: 122/82 Code : 8480-6 BMI: 30.1 Code : 25837-5 Heart Rate 1 : 68 bpm Height: 6' Weight: 222 lbs 09/11/2014 Blood Pressure 1: 142/78 Code : 8480-6 BMI: 31.9 Code : 37745-3 Heart Rate 1 : 86 bpm Height: 6' Weight: 235 lbs Functional Status No Functional Status data History of Present Illness Symptom Name Status Result Effective Date Notes hypertension Quality primary hypertension 01/06/2018 None hypertension Onset and Resolution ongoing 01/06/2018 None hypertension Onset of Symptom during adulthood 01/06/2018 None hypertension Alleviating Factors medication 01/06/2018 None anxiety Quality intermittent 01/06/2018 None anxiety Onset and Resolution ongoing 01/06/2018 None anxiety Alleviating Factors medication 01/06/2018 None hypertension Blood Pressure Values not checking blood pressure at home 01/06/2018 None hypertension Pertinent Findings Denies dizziness 01/06/2018 None hypertension Pertinent Findings Denies dyspnea 01/06/2018 None hypertension Pertinent Findings Denies edema 01/06/2018 None hypertension Quality stable 01/06/2018 None anxiety Quality stable 01/06/2018 None blood pressure followup Quality intermittent 06/29/2017 None blood pressure followup Onset and Resolution ongoing 06/29/2017 None blood pressure followup Onset of Symptom 1 months ago 06/29/2017 None blood pressure followup Blood Pressure Values pt checking blood pressure at home, did not bring in to clinic 06/29/2017 None blood pressure followup Pertinent Findings anxiety 06/29/2017 occasionally blood pressure followup Pertinent Findings Denies dizziness 06/29/2017 None blood pressure followup Pertinent Findings Denies dyspnea 06/29/2017 None blood pressure followup Pertinent Findings Denies edema 06/29/2017 None anxiety Quality chronic 06/02/2017 None anxiety Onset and Resolution ongoing 06/02/2017 None anxiety Onset of Symptom during adulthood 06/02/2017 None anxiety Limitation on Activities does not limit activities 06/02/2017 None anxiety Frequency of Episodes unchanged 06/02/2017 None anxiety Triggers activity 06/02/2017 None anxiety Triggers stress 06/02/2017 None anxiety Alleviating Factors medication 06/02/2017 None anxiety Pertinent Findings Denies dizziness 06/02/2017 None anxiety Pertinent Findings Denies insomnia 06/02/2017 None anxiety Quality chronic 10/14/2016 None anxiety Onset and Resolution ongoing 10/14/2016 None anxiety Onset of Symptom during adulthood 10/14/2016 None anxiety Limitation on Activities does not limit activities 10/14/2016 None anxiety Frequency of Episodes unchanged 10/14/2016 None anxiety Triggers activity 10/14/2016 None anxiety Triggers stress 10/14/2016 None anxiety Alleviating Factors medication 10/14/2016 None anxiety Pertinent Findings Denies dizziness 10/14/2016 None anxiety Pertinent Findings Denies insomnia 10/14/2016 None anxiety Quality chronic 02/28/2016 None anxiety Onset and Resolution ongoing 02/28/2016 None anxiety Onset of Symptom during adulthood 02/28/2016 None anxiety Limitation on Activities does not limit activities 02/28/2016 None anxiety Frequency of Episodes unchanged 02/28/2016 None anxiety Triggers activity 02/28/2016 None anxiety Triggers stress 02/28/2016 None anxiety Alleviating Factors medication 02/28/2016 None medication follow up Additional Comments medication use 06/26/2015 None medication follow up Location oral intake 06/26/2015 None medication follow up Quality unchanged 06/26/2015 None anxiety Quality intermittent 05/31/2015 - he reports that after the incident with chest pain and right arm numbness - he was given a script for xanax - and has since stopped taking it - anxiety Triggers stress 05/31/2015 None anxiety Pertinent Findings Denies dizziness 05/31/2015 None anxiety Pertinent Findings Denies dyspnea 05/31/2015 None anxiety Pertinent Findings Denies tachycardia 05/31/2015 None anxiety Pertinent Findings Denies tingling in extremities 05/31/2015 None anxiety Limitation on Activities moderately limits activities 05/31/2015 None skin lesion Onset of Symptom 2 months ago 09/11/2014 None skin lesion Location on the right lower eyelid 09/11/2014 None well man exam (18-39 years) Sexual Activity experiences sexual satisfaction 09/11/2014 None well man exam (18-39 years) Sexual Activity is monogamous 09/11/2014 None well man exam (18-39 years) Lifestyle family supportive of relationship 09/11/2014 None well man exam (18-39 years) Lifestyle normal amount of stress 09/11/2014 None well man exam (18-39 years) Lifestyle normal sleep patterns 09/11/2014 None well man exam (18-39 years) Lifestyle regular seatbelt use 09/11/2014 None well man exam (18-39 years) Lifestyle satisfactory marriage/partner relationship 09/11/2014 None well man exam (18-39 years) Lifestyle satisfactory work experience 09/11/2014 None well man exam (18-39 years) Nutrition and Exercise balanced nutrition 09/11/2014 None well man exam (18-39 years) Nutrition and Exercise moderate exercise 09/11/2014 None well man exam (18-39 years) Nutrition and Exercise normal weight 09/11/2014 None well man exam (18-39 years) Reproductive System Development normal puberty 09/11/2014 None well man exam (18-39 years) Health Guidance cholesterol level and lipid panel 09/11/2014 None well man exam (18-39 years) Health Guidance regular exercise 09/11/2014 None well man exam (18-39 years) Health Guidance safety belt use 09/11/2014 None well man exam (18-39 years) Health Guidance tobacco, drugs and alcohol avoidance 09/11/2014 None skin lesion Quality enlarging 09/11/2014 None well man exam (18-39 years) Cardiovascular Risk Factors obesity 09/11/2014 None Advance Directives No Advance Directive data Encounters Encounter Performer Location Codes Date ([id number]) 34850 EST. PATIENT, LEVEL IV Diagnosis: Essential (primary) hypertension[ICD10: I10] Diagnosis: Generalized anxiety disorder[ICD10: F41.1] [facility] CPT-4: 19400 01/06/2018 ([id number]) 26508 EST. PATIENT, LEVEL III Diagnosis: Essential (primary) hypertension[ICD10: I10] [facility] CPT-4: 63540 06/29/2017 ([id number]) PREV VISIT EST AGE 18-39 Diagnosis: Encounter for general adult medical examination without abnormal findings[ICD10: Z00.00] [facility] CPT-4: 72440 06/02/2017 ([id number]) 76509 EST. PATIENT, LEVEL III Diagnosis: Essential (primary) hypertension[ICD10: I10] Diagnosis: Generalized anxiety disorder[ICD10: F41.1] Roslyn Nichole MD, [facility] CPT-4: 56537 10/14/2016 ([id number]) 63340 EST. PATIENT, LEVEL III Diagnosis: Essential (primary) hypertension[ICD10: I10] Diagnosis: Generalized anxiety disorder[ICD10: F41.1] Roslyn Nichole MD, [facility] CPT-4: 40428 02/28/2016 ([id number]) 31848 EST. PATIENT, LEVEL III Diagnosis: Anxiety, generalized[ICD9: 300.02] Diagnosis: DEPRESSIVE DISORDER NEC[ICD9: 311] Lorteo Nichole MD, [facility] CPT-4: 78800 06/26/2015 ([id number]) 19269 EST. PATIENT, LEVEL III Diagnosis: ESSENTIAL HYPERTENSION[ICD9: 401.9] Diagnosis: DEPRESSIVE DISORDER NEC[ICD9: 311] Diagnosis: Anxiety, generalized[ICD9: 300.02] Loreto Nichole MD, [facility] CPT-4: 98243 05/31/2015 ([id number]) PREV VISIT NEW AGE 18-39 Diagnosis: PREVENTIVE PHYSICAL EXAM[ICD9: V70.0] Loreto Nichole MD, [facility] CPT-4: 27356 09/11/2014 Plan of Care Planned Activity Notes Codes Status Date Visit Plan: Hypertension - well controlled - continue with current medications, continue with no added salt diet. Pt has been encouraged to exercise daily. The pt has been advised to call the office if there are any acute concerns about change in blood pressure readings at home. Anxiety and depression - improved - pt reports symptoms of anxiety feeling "loopy" at times - I have recommended patient to decrease dose and stop the medication in the next 3 weeks. Pt reports intermittent fevers - check labs 01/06/2018 Patient Education: Patient Medication Summary Completed 01/06/2018 Care Plan: Comp Metabolic Pending 01/06/2018 Care Plan: Cbc With Differential Pending 01/06/2018 Care Plan: Tsh Pending 01/06/2018 Care Plan: Lipid Pending 01/06/2018 [facility] [phone] [facility] (15 min) Moderate 12/29/2017 Visit Plan: Hypertension - well controlled - continue with current medications, continue with no added salt diet. Pt has been encouraged to exercise daily. The pt has been advised to call the office if there are any acute concerns about change in blood pressure readings at home. 06/29/2017 [facility] [phone] [facility] (15 min) Moderate 06/29/2017 Patient Education: Patient Medication Summary Completed 06/29/2017 Patient Education: Obesity Completed 06/29/2017 Patient Education: Hypertension Completed 06/29/2017 Visit Plan: Well Adult - pt was counseled about diet, exercise, and encouraged to follow a heart healthy diet and increase activity level. The patient was instructed to RTC yearly for well adult exams and PRN for acute illnesses. The pt was also instructed to have yearly labs for check of cholesterol, thyroid, chem panel, CBC, and renal functioning. Hypertension - uncontrolled - the patient's medications have been modified as documented in the visit note. The patient has been counseled to cut back on salt in diet for a no added salt diet, low fat diet, start an exercise program with low weight bearing exercises and higher aerobic activity for heart health. The patient is to check blood pressure readings as an outpatient and either fax, call, or email the readings to the office next week for practitioner to review. The pt is to call for acute concerns. 06/02/2017 Appointment[facility] [phone] [facility] (15 min) Moderate 06/02/2017 Patient Education: Patient Medication Summary Completed 06/02/2017 Patient Education: Obesity Completed 06/02/2017 Visit Plan: Hypertension - well controlled - continue with current medications, continue with no added salt diet. Pt has been encouraged to exercise daily. The pt has been advised to call the office if there are any acute concerns about change in blood pressure readings at home. Chronic Depression and anxiety - the pt has symptoms of chronic anxiety and depression that have been fairly well controlled since the last office visit. The pt has expected periods of exacerbation with abatement of the symptoms with change in situational exposure. No change in current medications. 10/14/2016 Appointment: Roslyn Tristan WPtel: [phone] [phone] (30 min) Complex 10/14/2016 Patient Education: Patient Medication Summary Completed 10/14/2016 Patient Education: Obesity Completed 10/14/2016 Visit Plan: Hypertension - well controlled - continue with current medications, continue with no added salt diet. Pt has been encouraged to exercise daily. The pt has been advised to call the office if there are any acute concerns about change in blood pressure readings at home. Chronic Depression and anxiety - the pt has symptoms of chronic anxiety and depression that have been fairly well controlled since the last office visit. The pt has expected periods of exacerbation with abatement of the symptoms with change in situational exposure. No change in current medications. Obesity-recommend diet and exercise as discussed-patient to return to clinic for weight check as directed . 02/28/2016 Appointment: (15 min) Moderate 02/28/2016 Patient Education: Patient Medication Summary Completed 02/28/2016 Patient Education: Obesity Completed 02/28/2016 Patient Education: Hypertension Completed 02/28/2016 Care Plan: BMI Above normal followup SELF-MGMT EDUC & TRAIN 1 PT Ordered 2015 Appointment: Loreto Nichole WPtel: [facility] (15 min) Moderate 07/03/2015 Visit Plan: Chronic Depression and anxiety - the pt has symptoms of chronic anxiety and depression that have been fairly well controlled since the last office visit. The pt has expected periods of exacerbation with abatement of the symptoms with change in situational exposure. No change in current medications. 06/26/2015 Appointment: (15 min) Moderate 06/26/2015 Patient Education: Patient Medication Summary Completed 06/26/2015 Visit Plan: Hypertension - well controlled - continue with current medications, continue with no added salt diet. Pt has been encouraged to exercise daily. The pt has been advised to call the office if there are any acute concerns about change in blood pressure readings at home. Anxiety and Depression - uncontrolled - Pt has been counseled about the diagnosis of depression, the potential causes, and risks associated with the diagnosis. The patient has been counseled about treatment options, and understands the risks associated with treatment of depression, as well as the risks associated with NOT treating the depression. I believe the pt will benefit from medical intervention and an antidepressant has been appropriately prescribed for this patient. Pt started on escitalopram. 05/31/2015 Visit Plan: Hypertension - well controlled - continue with current medications, continue with no added salt diet. Pt has been encouraged to exercise daily. The pt has been advised to call the office if there are any acute concerns about change in blood pressure readings at home. Depression - uncontrolled - Pt has been counseled about the diagnosis of depression, the potential causes, and risks associated with the diagnosis. The patient has been counseled about treatment options, and understands the risks associated with treatment of depression, as well as the risks associated with NOT treating the depression. I believe the pt will benefit from medical intervention and an antidepressant has been appropriately prescribed for this patient. Pt started on escitalopram. 05/31/2015 Appointment: Loreto Nichole WPtel: [phone] [facility] (15 min) Moderate 05/31/2015 Patient Education: Patient Medication Summary Completed 05/31/2015 Patient Education: Hypertension Completed 05/31/2015 Visit Plan: Well Adult - pt was counseled about diet, exercise, and encouraged to follow a heart healthy diet and increase activity level. The patient was instructed to RTC yearly for well adult exams and PRN for acute illnesses. The pt was also instructed to have yearly labs for check of cholesterol, thyroid, chem panel, CBC, and renal functioning. 09/11/2014 Appointment: [facility] [phone] [facility] New Patient 09/11/2014 Patient Education: Patient Medication Summary Completed 09/11/2014 Instructions Comment . Hypertension - well controlled - continue with current medications, continue with no added salt diet. Pt has been encouraged to exercise daily. The pt has been advised to call the office if there are any acute concerns about change in blood pressure readings at home. Anxiety and Depression - uncontrolled - Pt has been counseled about the diagnosis of depression, the potential causes, and risks associated with the diagnosis. The patient has been counseled about treatment options, and understands the risks associated with treatment of depression, as well as the risks associated with NOT treating the depression. I believe the pt will benefit from medical intervention and an antidepressant has been appropriately prescribed for this patient. Pt started on escitalopram. . Hypertension - well controlled - continue with current medications, continue with no added salt diet. Pt has been encouraged to exercise daily. The pt has been advised to call the office if there are any acute concerns about change in blood pressure readings at home. Depression - uncontrolled - Pt has been counseled about the diagnosis of depression, the potential causes, and risks associated with the diagnosis. The patient has been counseled about treatment options, and understands the risks associated with treatment of depression, as well as the risks associated with NOT treating the depression. I believe the pt will benefit from medical intervention and an antidepressant has been appropriately prescribed for this patient. Pt started on escitalopram. . Well Adult - pt was counseled about diet, exercise, and encouraged to follow a heart healthy diet and increase activity level. The patient was instructed to RTC yearly for well adult exams and PRN for acute illnesses. The pt was also instructed to have yearly labs for check of cholesterol, thyroid, chem panel, CBC, and renal functioning. Hypertension - uncontrolled - the patient's medications have been modified as documented in the visit note. The patient has been counseled to cut back on salt in diet for a no added salt diet, low fat diet, start an exercise program with low weight bearing exercises and higher aerobic activity for heart health. The patient is to check blood pressure readings as an outpatient and either fax , call, or email the readings to the office next week for practitioner to review. The pt is to call for acute concerns. . Hypertension - well controlled - continue with current medications, continue with no added salt diet. Pt has been encouraged to exercise daily. The pt has been advised to call the office if there are any acute concerns about change in blood pressure readings at home. . Chronic Depression and anxiety - the pt has symptoms of chronic anxiety and depression that have been fairly well controlled since the last office visit. The pt has expected periods of exacerbation with abatement of the symptoms with change in situational exposure. No change in current medications. . Well Adult - pt was counseled about diet, exercise, and encouraged to follow a heart healthy diet and increase activity level. The patient was instructed to RTC yearly for well adult exams and PRN for acute illnesses. The pt was also instructed to have yearly labs for check of cholesterol, thyroid, chem panel, CBC, and renal functioning. . Hypertension - well controlled - continue with current medications, continue with no added salt diet. Pt has been encouraged to exercise daily. The pt has been advised to call the office if there are any acute concerns about change in blood pressure readings at home. Chronic Depression and anxiety - the pt has symptoms of chronic anxiety and depression that have been fairly well controlled since the last office visit. The pt has expected periods of exacerbation with abatement of the symptoms with change in situational exposure. No change in current medications. . Hypertension - well controlled - continue with current medications, continue with no added salt diet. Pt has been encouraged to exercise daily. The pt has been advised to call the office if there are any acute concerns about change in blood pressure readings at home. Chronic Depression and anxiety - the pt has symptoms of chronic anxiety and depression that have been fairly well controlled since the last office visit. The pt has expected periods of exacerbation with abatement of the symptoms with change in situational exposure. No change in current medications. Obesity-recommend diet and exercise as discussed-patient to return to clinic for weight check as directed . take 1/2 dose of the lexapro daily x 2 weeks then every other day x 5 doses then stop . Hypertension - well controlled - continue with current medications, continue with no added salt diet. Pt has been encouraged to exercise daily. The pt has been advised to call the office if there are any acute concerns about change in blood pressure readings at home. Anxiety and depression - improved - pt reports symptoms of anxiety feeling "loopy" at times - I have recommended patient to decrease dose and stop the medication in the next 3 weeks. Pt reports intermittent fevers - check labs
--- OUTSIDE RECORDS SUMMARY | 2018-04-18 14:07 | XMS REPORT | CCD ---
Author Author [facility]ole Organization [facility] Address [address] [place] [address] Phone Care Team Providers Care Wet Cotton Feeder Name Role Phone PP Unavailable CCM Unavailable Summary Purpose Interface Exchange Insurance Providers Payer name Policy type / Coverage type Covered libertarian ID Effective Begin Date Effective End Date Blue Cross Blue [facility] Blue Cross/Blue [facility] [id number] Unknown Family history Brother Diagnosis Age At Onset Cancer Unknown Social History Social History Element Codes Description Effective Dates Number of children Unknown 1 daughter 201310/14/2016 Marital status Unknown 09/11/2014 Employment Unknown Currently employed sales ledger clerk 09/11/[address]: 2238284 Former smoker in college 09/11/2014 Alcohol history Unknown occasionally drinks alcohol 09/11/2014 Allergies, Adverse Reactions, Alerts Allergies, Adverse Reactions, Alerts data not found Past Medical History Illness Codes Condition Status Onset Date Resolved Date Impaired fasting glucose ICD-9: 790.29 ICD-10: R73.01 Active 01/07/2018 Unknown Essential (primary) hypertension ICD-9: 401.9 ICD-10: I10 [...] Problems Condition Codes Effective Dates Condition Status Impaired fasting glucose ICD-9: 790.29 ICD-10: R73.01 01/07/2018 Active Essential (primary) hypertension ICD-9: 401.9 ICD-10: I10 [...] Fill Instructions Xanax 0.25 mg tablet RxNorm: 967874 TAKE ONE TABLET BY MOUTH EVERY 6 HOURS NEEDED FOR ANXIETY 10/27/2017 11/11/2017 Inactive Xanax 0.25 mg tablet RxNorm: 136082 1 Tablet(s) PO Q6 PRN TAKE ONE TABLET BY MOUTH EVERY 6 HOURS NEEDED FOR ANXIETY 07/28/2017 08/03/2017 Inactive losartan 100 mg-hydrochlorothiazide 12.5 mg tablet RxNorm: 420398 1 Tablet(s) PO daily 06/02/2017 05/27/2018 Active escitalopram 10 mg tablet RxNorm: 493498 1 Tablet(s) PO daily TAKE 1 TABLET BY MOUTH EVERY EVENING 06/02/2017 05/27/2018 Active Xanax 0.25 mg tablet RxNorm: 497656 Tablet(s) TAKE ONE TABLET BY MOUTH EVERY 6 HOURS NEEDED FOR ANXIETY 04/30/2017 Inactive escitalopram 10 mg tablet RxNorm: 682246 TAKE 1 TABLET BY MOUTH EVERY EVENING 04/30/2017 05/29/2017 Inactive losartan 100 mg tablet RxNorm: 584076 TAKE 1 TABLET BY MOUTH EVERY DAY 03/02/2017 06/01/2017 Inactive Xanax 0.25 mg tablet RxNorm: 879660 Tablet(s) TAKE ONE TABLET BY MOUTH EVERY 6 HOURS NEEDED FOR ANXIETY 02/03/2017 Inactive escitalopram 10 mg tablet RxNorm: 273125 TAKE 1 TABLET BY MOUTH EVERY EVENING 01/15/2017 04/29/2017 Inactive losartan 100 mg tablet RxNorm: 610355 TAKE 1 TABLET BY MOUTH EVERY DAY 11/03/2016 03/01/2017 Inactive Xanax 0.25 mg tablet RxNorm: 125981 Tablet(s) TAKE ONE TABLET BY MOUTH EVERY 6 HOURS NEEDED FOR ANXIETY 10/10/2016 Inactive Generic For:XANAX 0.25 MG TABLET 01/14/2016 8:25:34 AM escitalopram 10 mg tablet RxNorm: 661790 1 Tablet(s) PO QPM 10/03/2016 Inactive 1/2 tab q pm losartan 100 mg tablet RxNorm: 076005 1 Tablet(s) PO daily 10/03/2016 Inactive Xanax 0.25 mg tablet RxNorm: 962210 Tablet(s) TAKE ONE TABLET BY MOUTH EVERY 6 HOURS NEEDED FOR ANXIETY 02/28/201605/2016 Inactive Generic For:XANAX 0.25 MG TABLET 01/14/2016 8:25:34 AM escitalopram 10 mg tablet RxNorm: 826846 1/2 Tablet(s) PO QPM 02/28/2016 04/06/2016 Inactive 1/2 tab q pm escitalopram 10 mg tablet RxNorm: 206637 1/2 Tablet(s) 1 Tablet(s) PO QPM 02/28/2016 02/27/2016 Inactive losartan 100 mg tablet RxNorm: 591109 1 Tablet(s) PO daily 05/201604/06/2016 Inactive escitalopram 10 mg tablet RxNorm: 423878 1/2 Tablet(s) PO QPM 1 Tablet(s) PO QPM 02/28/2016 02/27/2016 Inactive Xanax 0.25 mg tablet RxNorm: 012906 TAKE ONE TABLET BY MOUTH EVERY 6 HOURS NEEDED FOR ANXIETY 01/14/2016 01/28/2016 Inactive Generic For:XANAX 0.25 MG TABLET 01/14/2016 8:25:34 AM Xanax 0.25 mg tablet RxNorm: 393197 TAKE ONE TABLET BY MOUTH EVERY 6 HOURS NEEDED FOR ANXIETY 10/15/2015 01/16/2016 Inactive Generic For:XANAX 0.25 MG TABLET 10/15/2015 8:11:02 AM escitalopram 10 mg tablet RxNorm: 111171 1 Tablet(s) PO QPM 01/14/2016 Inactive Xanax 0.25 mg tablet RxNorm: 302535 1 Tablet(s) PO Q6 as needed 08/23/2015 10/15/2015 Inactive Xanax 0.25 mg tablet RxNorm: 097915 1 Tablet(s) PO Q6 as needed 06/26/2015 08/15/2015 Inactive escitalopram 10 mg tablet RxNorm: 768151 1 Tablet(s) PO QPM 07/201509/16/2015 Inactive losartan 100 mg tablet RxNorm: 275748 1 Tablet(s) PO daily 04/201502/27/2016 Inactive losartan 50 mg tablet RxNorm: 213474 1 Tablet(s) PO daily 201403/27/2015 Inactive losartan 50 mg tablet RxNorm: 267640 1 Tablet(s) PO daily 201303/04/2015 Inactive losartan 25 mg tablet RxNorm: 322682 1 Tablet(s) PO daily 201310/01/2014 Inactive losartan 25 mg tablet RxNorm: 674407 1 Tablet(s) PO daily 201310/23/2014 Inactive Multiple Vitamin oral RxNorm: 25444 oral No Start Date Active Fish Oil 1,000 mg capsule RxNorm: 1 Capsule(s) PO daily No Start Date Active aspirin, buffered 81 mg tablet RxNorm: 224981 1 Tablet(s) PO daily No Start Date Active Xanax 0.25 mg tablet RxNorm: 999432 1 Tablet(s) PO Q6 as needed No Start Date 06/25/2015 Inactive Medication Administered No Medication Administered data Immunizations No Immunization data Assessments Condition Codes Effective Dates Impaired fasting glucose ICD-10: R73.01 ICD-9: 790.29 01/07/2018 Generalized anxiety disorder ICD-10: F41.1 ICD-9: 300.02 [...] has skin tag near right eye Results Observation Observation Code Item Item Code Result Date Cbc With Differential Ord2 WBC 8.91 K/ul 01/07/2018 Cbc With Differential Ord2 RBC 4.72 M/ul 01/07/2018 Cbc With Differential Ord2 HGB 14.5 g/dl 01/07/2018 Cbc With Differential Ord2 HCT 43.3 % 01/07/2018 Cbc With Differential Ord2 Neut% 51.7 % 01/07/2018 Cbc With Differential Ord2 Lymph% 35.2 % 01/07/2018 Cbc With Differential Ord2 MCV 91.7 fl 01/07/2018 Cbc With Differential Ord2 [place]% 9.2 % 01/07/2018 Cbc With Differential Ord2 MCH 30.7 pg 01/07/2018 Cbc With Differential Ord2 MCHC 33.5 pg 01/07/2018 Cbc With Differential Ord2 Eos% 3.6 % 01/07/2018 Cbc With Differential Ord2 PLT 256 K/ul 01/07/2018 Cbc With Differential Ord2 Baso% 0.3 % 01/07/2018 Cbc With Differential Ord2 RDW 13.4 % 01/07/2018 Cbc With Differential Ord2 Neut ABS# 4.60 K/ul 01/07/2018 Cbc With Differential Ord2 Lymph ABS# 3.14 K/ul 01/07/2018 Cbc With Differential Ord2 [place] ABS# 0.8 K/ul 01/07/2018 Cbc With Differential Ord2 Eos ABS# 0.3 K/ul 01/07/2018 Cbc With Differential Ord2 Baso ABS# 0.0 K/ul 01/07/2018 Lipid Ord30 CHOL 165 mg/dL 01/07/2018 Lipid Ord30 HDL 34.0 mg/dl 01/07/2018 Lipid Ord30 TRIG 156 mg/dL 01/07/2018 Lipid Ord30 LDL 100 mg/dL 01/07/2018 Lipid Ord30 C/HDL 4.9 Ratio 01/07/2018 Tsh Ord6 TSH (3rd IS) 1.40 uIU/mL 01/07/2018 Comp Metabolic Vql672 NA 139 mEq/L 01/07/2018 Comp Metabolic Can205 K 4.5 mEq/L 01/07/2018 Comp Metabolic Kon843 CL 104 mEq/L 01/07/2018 Comp Metabolic Ceo697 CO2 26.0 mEq/L 01/07/2018 Comp Metabolic Ayf483 ANION GAP 14 01/07/2018 Comp Metabolic Vlj192 GLUCOSE 120 mg/dL 01/07/2018 Comp Metabolic Jrp005 Creat 0.7 mg/dL 01/07/2018 Comp Metabolic Lfr777 eGFR 133 ml/min/1.73m2 01/07/2018 Comp Metabolic Fqe019 BUN 18 mg/dL 01/07/2018 Comp Metabolic Vsr975 B/C Ratio 25.7 Ratio 01/07/2018 Comp Metabolic Stc535 CALCIUM 9.4 mg/dL 01/07/2018 Comp Metabolic Weo233 ALK PHOS 50 U/L 01/07/2018 Comp Metabolic Vge912 AST(SGOT) 26 U/L 01/07/2018 Comp Metabolic Akl672 ALT(SGPT) 54 U/L 01/07/2018 Comp Metabolic Otq235 BILI T 1.0 mg/dL 01/07/2018 Comp Metabolic Hji742 ALBUMIN 4.4 g/dL 01/07/2018 Comp Metabolic Haa181 TPRO 6.8 g/dL 01/07/2018 Comp Metabolic Yox726 GLOB 2.4 g/dL 01/07/2018 Comp Metabolic Dnx764 A/G Ratio 1.9 Ratio 01/07/2018 Comp Metabolic Oer015 Osmo 281 mOsmo 01/07/2018 Review of Systems System Result Effective Dates [...] accomodation 06/29/2017 None Full Exam - General 1994 Ears/Nose/Throat lips/teeth/gingiva Overall: benign lips 06/29/2017 None Full Exam - General 1994 Ears/Nose/Throat lips/teeth/gingiva Overall: normal dentition 06/29/2017 None Full Exam - General 1994 Ears/Nose/Throat oral cavity/pharynx/larynx Overall: oral mucosa clear 06/29/2017 None Full Exam - General 1994 Ears/Nose/Throat oral cavity/pharynx/larynx Overall: oropharyngeal mucosa clear 06/29/2017 None Full Exam - General 1994 Ears/Nose/Throat oral cavity/pharynx/larynx Overall: hypopharynx benign 06/29/2017 [...] Code : 8480-6 BMI: 35.7 Code : 59390-2 Heart Rate 1 : 86 bpm Height: 6' SpO2: 97% Weight: 263 lbs 06/29/2017 Blood Pressure 1: 124/80 Code : 8480-6 BMI: 33.4 Code : 92505-6 Heart Rate 1 : 72 bpm Height: 6' SpO2: 98% Weight: 246 lbs 06/02/2017 Blood Pressure 1: 152/88 Code : 8480-6 Blood Pressure 1: 142/80 Code: 8480-6 BMI: 32.8 Code: 45029-1 Heart Rate 1: 70 bpm Height: 6' SpO2: 97% Weight: 242 lbs 10/14/2016 Blood Pressure 1: 130/70 Code : 8480-6 BMI: 35.0 Code : 24096-6 Heart Rate 1 : 56 bpm Height: 6' Weight: 258 lbs 02/28/2016 Blood Pressure 1: 128/80 Code : 8480-6 BMI: 33.8 Code : 50755-0 Heart Rate 1 : 69 bpm Height: 6' SpO2: 93% Weight: 249 lbs 06/26/2015 Blood Pressure 1: 142/70 Code : 8480-6 BMI: 30.2 Code : 15042-1 Heart Rate 1 : 88 bpm Height: 6' SpO2: 97% Weight: 223 lbs 05/31/2015 Blood Pressure 1: 122/82 Code : 8480-6 BMI: 30.1 Code : 94552-1 Heart Rate 1 : 68 bpm Height: 6' Weight: 222 lbs 09/11/2014 Blood Pressure 1: 142/78 Code : 8480-6 BMI: 31.9 Code : 62871-2 Heart Rate 1 : 86 bpm Height: [...] data Encounters Encounter Performer Location Codes Date ([id number]) 35424 EST. PATIENT, LEVEL IV Diagnosis: Essential (primary) hypertension[ICD10: I10] Diagnosis: Generalized anxiety disorder[ICD10: F41.1] Loreto Nichole MD, [facility] CPT-4: 29368 01/06/2018 ([id number]) 90538 EST. PATIENT, LEVEL III Diagnosis: Essential (primary) hypertension[ICD10: I10] Loreto Nichole MD, [facility] CPT-4: 12538 06/29/2017 ([id number]) PREV VISIT EST AGE 18-39 Diagnosis: Encounter for general adult medical examination without abnormal findings[ICD10: Z00.00] Loreto Nichole MD, [facility] CPT-4: 60391 06/02/2017 ([id number]) 57260 EST. PATIENT, LEVEL III Diagnosis: Essential (primary) hypertension[ICD10: I10] Diagnosis: Generalized anxiety disorder[ICD10: F41.1] Roslyn Nichole MD, [facility] CPT-4: 87215 10/14/2016 ([id number]) 46351 EST. PATIENT, LEVEL III Diagnosis: Essential (primary) hypertension[ICD10: I10] Diagnosis: Generalized anxiety disorder[ICD10: F41.1] [facility] CPT-4: 01734 02/28/2016 ([id number]) 49766 EST. PATIENT, LEVEL III Diagnosis: Anxiety, generalized[ICD9: 300.02] Diagnosis: DEPRESSIVE DISORDER NEC[ICD9: 311] [facility] CPT-4: 53363 06/26/2015 ([id number]) 02345 EST. PATIENT, LEVEL III Diagnosis: ESSENTIAL HYPERTENSION[ICD9: 401.9] Diagnosis: DEPRESSIVE DISORDER NEC[ICD9: 311] Diagnosis: Anxiety, generalized[ICD9: 300.02] NICK El MD CPT-4: 00839 05/31/2015 ([id number]) PREV VISIT NEW AGE 18-39 Diagnosis: PREVENTIVE PHYSICAL EXAM[ICD9: V70.0] Loreto Nichole MD [facility] CPT-4: 91139 09/11/2014 Plan of Care Planned Activity Notes Codes Status Date Patient Education: Patient Medication Summary Completed 01/07/2018 Care Plan: %Hba1C [facility] : 45393-6 Pending 01/07/2018 Visit Plan: Hypertension - well controlled - [...] reports intermittent fevers - check labs 01/06/2018 Appointment: Loreto Nichole WPtel: [phone] [facility] (15 min) Moderate 01/06/2018 Patient Education: Patient Medication Summary Completed 01/06/2018 Appointment: Loreto Nichole WPtel: [facility] (15 min) Moderate 12/29/2017 Visit Plan: Hypertension - well controlled - continue with current medications, continue with no added salt diet. Pt has been encouraged to exercise daily. The pt has been advised to call the office if there are any acute concerns about change in blood pressure readings at home. 06/29/2017 [phone] (15 min) Moderate 06/29/2017 Patient Education: Patient [...] concerns. 06/02/2017 App[phone] [facility] (15 min) Moderate 06/02/2017 Patient Education: Patient [...] current medications. 10/14/2016 App[facility]ment: [phone] [place] (30 min) Complex 10/14/2016 Patient Education: Patient [...] PT Ordered 2015 Appointment: [facility]ore[facility] Nichole [facility]Ptel: [facility] (15 min) Moderate 07/03/2015 Visit Plan: Chronic [...] patient. Pt started on escitalopram. 05/31/2015 Appointment: MorrillLoreto WPtel: [phone] [facility] (15 min) Moderate 05/31/2015 Patient Education: Patient [...] renal functioning. 09/11/2014 Appointment: Loreto Nichole WPtel: [phone] [facility] New Patient 09/11/2014 Patient Education: Patient Medication [...]
[2018-04-18] MEDS ORDERED: NS IV 1000 ML 1,000 ML IV ONE (14:35)
[2018-04-18] MEDS ORDERED: ASPIRIN 81 MG CHEW (CHILDREN'S ASA) PO ONE (14:45)
[2018-04-18 14:49] LABS: BASOPHILS % (AUTO) 0 % (0-10); EOSINOPHILS # (AUTO) 0.1 10^3/uL (0.0-0.3); EOSINOPHILS % (AUTO) 1 % (0-10); HEMATOCRIT 40 % (40-54); LYMPHOCYTES # (AUTO) 2.9 X 10^3 (1.0-4.0); LYMPHOCYTES % (AUTO) 23 % (12-44); MEAN CORPUSCULAR HEMOGLOBIN 32 PG (25-34); MEAN CORPUSCULAR HGB CONC 35 G/DL (32-36); MEAN CORPUSCULAR VOLUME 90 FL (80-99); MEAN PLATELET VOLUME 10.3 FL (7.4-10.4); MONOCYTES # (AUTO) 1.8 X 10^3 (0.0-1.0); MONOCYTES % (AUTO) 14 % (0-12); NEUTROPHILS # (AUTO) 8.2 X 10^3 (1.8-7.8); NEUTROPHILS % (AUTO) 63 % (42-75); PLATELET COUNT 261 10^3/uL (130-400); RED BLOOD COUNT 4.42 10^6/uL (4.35-5.85); RED CELL DISTRIBUTION WIDTH 13.7 % (10.0-14.5)
[2018-04-18 14:59] LABS: INR 1.1 (0.8-1.4); PROTHROMBIN TIME PATIENT 14.2 SEC (12.2-14.7)
[2018-04-18 15:07] LABS: ALANINE AMINOTRANSFERASE 44 U/L (0-55); ALBUMIN 4.3 GM/DL (3.2-4.5); ALKALINE PHOSPHATASE 54 U/L (40-136); BILIRUBIN,TOTAL 1.7 MG/DL (0.1-1.0); BUN/CREATININE RATIO 13; CALCIUM 9.4 MG/DL (8.5-10.1); CARBON DIOXIDE 22 MMOL/L (21-32); CHLORIDE 103 MMOL/L (98-107); CREATININE SERUM 0.96 MG/DL (0.60-1.30); GFR ESTIMATED > 60; GLUCOSE 86 MG/DL (70-105); MAGNESIUM 2.4 MG/DL (1.8-2.4); POTASSIUM 4.5 MMOL/L (3.6-5.0); SODIUM 137 MMOL/L (135-145); TOTAL PROTEIN 7.7 GM/DL (6.4-8.2)
--- NOTE | 2018-04-18 15:09 | Diagnostic Imaging Report ---
EXAM: Chest 1 view, AP/PA only. INDICATION: Arrythmia. COMPARISON: None. FINDINGS: Normal heart size and pulmonary vascularity. No focal pulmonary opacity, pleural effusion or pneumothorax. Osseous structures are unremarkable. IMPRESSION: Negative chest. Dictated by: Dictated on workstation # [id number]
[2018-04-18 15:15] LABS: MYOGLOBIN SERUM 77.5 NG/ML (10.0-92.0)
[2018-04-18] MEDS ORDERED: CLINDAMYCIN 900 MG/50 ML IVPB 50 ML IV ONE (15:15)
[2018-04-18] MEDS ORDERED: PIPERACILLIN SODIUM/TAZOBACTAM 4.5 GM in D5W 100 ML IVPB 100 ML IV ONE (15:45)
--- NOTE | 2018-04-18 15:52 | ED General ---
General Chief Complaint: Lower Extremity Stated Complaint: POSS BLOOD CLOTS,IRREG HEART BEAT,SENT FROM [facility] Nursing Triage Note: pt reports r and l lower calf pain x 3 days. pt reports tenderness and pain with redness. Nursing Sepsis Screen: No Definite Risk Source of Information: Patient Exam Limitations: No Limitations History of Present Illness Date Seen by Provider: April 18, 2018 Time Seen by Provider: 14:25 Initial Comments This 42-year-old gentleman was referred to the emergency room by [facility] because of irregular heartbeat and tachycardia. Patient had presented there because of erythema over the anterior lower legs bilaterally with pain. Symptoms have been present for about 3 days. He also has scratches over the lower legs from trimming some bushes/brush. He states his noted he was breathing "funny" in the night the last 2 nights. He states he woke last night with bad heartburn but he also had several alcoholic beverages and barbecue and presumed this was heartburn related to that. He had nausea last night without vomiting. He denies any chest pain today or shortness of breath. The erythema on his legs has been intermittent but overall worsening over the past 3 days. Patient notes recent travel including travel to [place] last week and to [place] 6 weeks ago. He is afebrile. Frequent PVCs are noted on the timber rider. Allergies and Home Medications Allergies Coded Allergies: No Known Drug Allergies (Unverified , 07/03/12) Home Medications Doxycycline Hyclate 100 Mg Capsule, 1 EACH PO BID Prescribed by: RICO MALONE on 07/03/122044 Ibuprofen 200 Mg Tablet, 400 MG PO PRN, (Reported) Patient Home Medication List Home Medication List Reviewed: Yes Review of Systems Constitutional: no symptoms reported EENTM: no symptoms reported Respiratory: no symptoms reported Cardiovascular: see HPI Gastrointestinal: see HPI Genitourinary: no symptoms reported Musculoskeletal: no symptoms reported Skin: see HPI Psychiatric/Neurological: No Symptoms Reported Hematologic/Lymphatic: No Symptoms Reported Immunological/Allergic: no symptoms reported Past Erqcefx-Rnsxyx-Vjceho Hx Past Med/Social Hx: Reviewed Nursing Past Med/Soc Hx Patient Social History Alcohol Use: Occasionally Uses Recreational Drug Use: No Smoking Status: Never a Smoker Recent Foreign Travel: No Contact w/Someone Who Travel: No Recent Infectious Disease Expo: No Physical Abuse: No Sexual Abuse: No Mistreated: No Fear: No Past Medical History Surgeries: Yes (hernia repair, penile) Abdominal Respiratory: No Cardiac: Yes Hypertension Neurological: No Genitourinary: No Gastrointestinal: No Musculoskeletal: No Endocrine: No HEENT: No Cancer: No Psychosocial: Yes Anxiety Nursing Suicide Risk Score: 0 Integumentary: No Blood Disorders: No Family Medical History No Pertinent Family Hx Physical Exam Vital Signs Vital Signs - First Documented 04/18/18 04/18/18 14:26 17:00 Temp 99.9 Pulse 101 Resp 20 B/P (MAP) 130/85 (100) Pulse Ox 94 O2 Delivery Room Air Capillary Refill : Less Than 3 Seconds General Appearance: No Apparent Distress, WD/WN HEENT: PERRL/EOMI, Normal ENT Inspection Neck: Normal Inspection Respiratory: Lungs Clear, Normal Breath Sounds, No Accessory Muscle Use, No Respiratory Distress Cardiovascular: No Edema, No Murmur, Tachycardia Gastrointestinal: Normal Bowel Sounds, Non Tender, Soft Extremity: No Calf Tenderness, No Pedal Edema, Other (patches of warm erythema on the anterior lower legs bilaterally, left greater than right. This area expanded during the ER visit. No significant edema. No significant calf tenderness.) Neurologic/Psychiatric: Alert, Oriented x3, No Motor/Sensory Deficits, Normal Mood/Affect, stiff neck loader II-XII Norm as Tested Skin: Normal Color, Warm/Dry Focused Exam Lactate Level 04/18/18 15:29: Lactic Acid Level 1.88 Lactic Acid Level Laboratory Tests Test 04/18/18 15:29 Lactic Acid Level 1.88 MMOL/L (0.50-2.00) Progress/Results/Core Measures Suspected Sepsis Recent Fever Within 48 Hours: No Infection Criteria Present: None New/Unexplained Altered Menta: No Sepsis Screen: No Definite Risk SIRS Temperature:99.9 Pulse: 101 Respiratory Rate: 20 Laboratory Tests 04/18/18 14:42: White Blood Count 13.0H Blood Pressure 130 /85 Mean: 100 04/18/18 15:29: Lactic Acid Level 1.88 Laboratory Tests 04/18/18 14:42: Creatinine 0.96, INR Comment 1.1, Platelet Count 261, Total Bilirubin 1.7H Results/Orders Lab Results Laboratory Tests Test 04/18/18 14:42 04/18/18 15:29 Range/Units White Blood Count 13.0 H 4.3-11.0 10^3/uL Red Blood Count 4.42 4.35-5.85 10^6/uL Hemoglobin 14.0 13.3-17.7 G/DL Hematocrit 40 40-54 % Mean Corpuscular Volume 90 80-99 FL Mean Corpuscular Hemoglobin 32 25-34 PG Mean Corpuscular Hemoglobin Concent 35 32-36 G/DL Red Cell Distribution Width 13.7 10.0-14.5 % Platelet Count 261 130-400 10^3/uL Mean Platelet Volume 10.3 7.4-10.4 FL Neutrophils (%) (Auto) 63 42-75 % Lymphocytes (%) (Auto) 23 12-44 % Monocytes (%) (Auto) 14 H 0-12 % Eosinophils (%) (Auto) 1 0-10 % Basophils (%) (Auto) 0 0-10 % Neutrophils # (Auto) 8.2 H 1.8-7.8 X 10^3 Lymphocytes # (Auto) 2.9 1.0-4.0 X 10^3 Monocytes # (Auto) 1.8 H 0.0-1.0 X 10^3 Eosinophils # (Auto) 0.1 0.0-0.3 10^3/uL Basophils # (Auto) 0.0 0.0-0.1 10^3/uL Erythrocyte Sedimentation Rate 11 0-15 MM/HR Prothrombin Time 14.2 12.2-14.7 SEC INR Comment 1.1 0.8-1.4 Activated Partial Thromboplast Time 29 24-35 SEC D-Dimer 0.35 0.00-0.49 UG/ML Sodium Level 137 135-145 MMOL/L Potassium Level 4.5 3.6-5.0 MMOL/L Chloride Level 103 98-107 MMOL/L Carbon Dioxide Level 22 21-32 MMOL/L Anion Gap 12 5-14 MMOL/L Blood Urea Nitrogen 12 7-18 MG/DL Creatinine 0.96 0.60-1.30 MG/DL Estimat Glomerular Filtration Rate > 60 BUN/Creatinine Ratio 13 Glucose Level 86 70-105 MG/DL Calcium Level 9.4 8.5-10.1 MG/DL Magnesium Level 2.4 1.8-2.4 MG/DL Total Bilirubin 1.7 H 0.1-1.0 MG/DL Aspartate Amino Transf (AST/SGOT) 34 5-34 U/L Alanine Aminotransferase (ALT/SGPT) 44 0-55 U/L Alkaline Phosphatase 54 40-136 U/L Myoglobin 77.5 10.0-92.0 NG/ML Troponin I < 0.30 <0.30 NG/ML C-Reactive Protein High Sensitivity 6.64 H 0.00-0.50 MG/DL Total Protein 7.7 6.4-8.2 GM/DL Albumin 4.3 3.2-4.5 GM/DL Lactic Acid Level 1.88 0.50-2.00 MMOL/L My Orders Orders - TRAVIS SEXTON MD Cbc With Automated Diff (04/18/18 14:35) Magnesium (04/18/18 14:35) Chest 1 View, Ap/Pa Only (04/18/18 14:35) Ekg Tracing (04/18/18 14:35) Cardiac Profile 1 (04/18/18 14:35) Comprehensive Metabolic Panel (04/18/18 14:35) Myoglobin Serum (04/18/18 14:35) Protime With Inr (04/18/18 14:35) Partial Thromboplastin Time (04/18/18 14:35) O2 (04/18/18 14:35) Monitor-Rhythm Ecg Trace Only (04/18/18 14:35) Lipid Panel (04/19/18 06:00) Aspirin Chewable Tablet (Baby Aspirin Ch (04/18/18 14:45) Saline Lock/Iv-Start (04/18/18 14:35) Hs C Reactive Protein (04/18/18 14:35) Fibrin Degradation Products (04/18/18 14:35) Erythrocyte Sedimentation Rate (04/18/18 14:35) Saline Lock/Iv-Start (04/18/18 14:35) Ns Iv 1000 Ml (Sodium Chloride 0.9%) (04/18/18 14:35) Clindamycin 900 Mg/50 Ml Ivpb (Cleocin P (04/18/18 15:15) Blood Culture (04/18/18 15:21) Lactic Acid Analyzer (04/18/18 15:21) Piperacillin Sodium/Tazobactam (Zosyn Vi (04/18/18 15:45) Medications Given in ED Current Medications Medications Dose Ordered Sig/Al Route Start Time Stop Time Status Last Admin Dose Admin Aspirin 324 mg ONCE ONCE PO 04/18/18 14:45 04/18/18 14:46 DC 04/18/18 14:47 324 MG Sodium Chloride 1,000 ml @ 0 mls/hr Q0M ONCE IV 04/18/18 14:35 04/18/18 14:39 DC 04/18/18 14:48 0 MLS/HR Vital Signs/I&O 04/18/18 04/18/18 04/18/18 04/18/18 14:26 16:28 17:00 17:19 Temp 99.9 98.9 Pulse 101 99 98 106 Resp 20 18 16 B/P (MAP) 130/85 (100) 143/80 140/68 (92) Pulse Ox 94 98 96 O2 Delivery Room Air 04/18/18 17:58 Temp 100.2 Pulse 102 Resp 18 B/P (MAP) 130/67 (88) Pulse Ox 96 O2 Delivery Room Air Capillary Refill : Less Than 3 Seconds Blood Pressure Mean: 100 Progress Note : Progress Note Patient received a thorough workup in the emergency room. His cardiopulmonary workup was unremarkable. D-dimer was negative. He was given a liter of IV fluids and his tachycardia and PVCs improved. After review of the labs it was felt that his symptoms are secondary to cellulitis. The erythema actually expanded noticeably during his time in the ER. Case was reviewed with Dr. Olivas. She agrees with admission which patient requested. After blood cultures and lactic acid, treatment was started with Zosyn. Dr. Montemayor was consulted at Dr. Olivas's request. ECG Initial ECG Impression Date: April 18, 2018 Initial ECG Impression Time: 10:10 Initial ECG Rhythm: S.Tach Comment Sinus tachycardia with no ST elevation or depression. PVCs noted. No abnormal intervals or axis deviation. Diagnostic Imaging Diagonstic Imaging: Xray Plain Films/CT/US/NM/MRI: chest Comments Chest x-ray viewed by me and report reviewed. See report below: NAME: [facility] REC#: [id number] PT STATUS: REG ER : 1975 PHYSICIAN: TRAVIS SEXTON MD ADMIT DATE: 04/18/18/ER Draft Date of Exam:04/18/18 CHEST 1 VIEW, AP/PA ONLY EXAM: Chest 1 view, AP/PA only. INDICATION: Arrythmia. COMPARISON: None. FINDINGS: Normal heart size and pulmonary vascularity. No focal pulmonary opacity, pleural effusion or pneumothorax. Osseous structures are unremarkable. IMPRESSION: Negative chest. Dictated on workstation # [id number] Dict: 04/18/18 1500 Trans: 04/18/18 1531 [facility] [id number] Interpreted by: SAVANA MARTIN MD Departure Communication (Admissions) Time/Spoke to Admitting Phy: 15:35 Dr. Olivas Time/Spoke to Consulting Phy: 15:40 Dr. Montemayor Impression Primary Impression: Sepsis Qualified Codes: A41.9 - Sepsis, unspecified organism Additional Impressions: Bilateral lower leg cellulitis PVCs (premature ventricular contractions) Disposition: ADMITTED INPATIENT Condition: Improved Admissions Decision to Admit Reason: Admit from ER (General) Decision to Admit/Date: April 18, 2018 Time/Decision to Admit Time: 15:25 Departure-Patient Inst. Referrals: VI BOUDREAUX MD (PCP/Family) Primary Care Physician TRAVIS SEXTON MD April 18, 2018 15:52
[2018-04-18] MEDS ORDERED: VANCOMYCIN INJECTION 2,500 MG in NS IV 500 ML 500 ML IV NR (16:46)
[2018-04-18 17:00] VITALS: BP 140/68
[2018-04-18] MEDS ORDERED: fentaNYL INJECTION 100 MCG/2 ML AMP IVP PRN (17:00)
[2018-04-18] MEDS: NS IV 1000 ML 1,000 ML IV SCH (17:46)
[2018-04-18] MEDS: IBUPROFEN 600 MG (MOTRIN) TAB PO PRN (17:47)
[2018-04-18 17:58] VITALS: BP 130/67
[2018-04-18 19:33] VITALS: BP 144/67
[2018-04-18] MEDS: PIPERACILLIN/TAZO 4.5 GM/D5W 100 ML IVPB IV SCH ×2 (20:51)
[2018-04-19 00:08] VITALS: BP 123/66
[2018-04-19] MEDS: NS IV 1000 ML 1,000 ML IV SCH ×3 (01:15→16:21)
[2018-04-19] MEDS: PIPERACILLIN/TAZO 4.5 GM/D5W 100 ML IVPB IV SCH ×6 (03:38→20:36)
[2018-04-19 04:23] VITALS: BP 117/72
[2018-04-19 05:39] LABS: BASOPHILS % (AUTO) 0 % (0-10); EOSINOPHILS # (AUTO) 0.2 10^3/uL (0.0-0.3); EOSINOPHILS % (AUTO) 2 % (0-10); HEMATOCRIT 39 % (40-54); HEMOGLOBIN 12.7 G/DL (13.3-17.7); LYMPHOCYTES # (AUTO) 2.7 X 10^3 (1.0-4.0); LYMPHOCYTES % (AUTO) 22 % (12-44); MEAN CORPUSCULAR HEMOGLOBIN 30 PG (25-34); MEAN CORPUSCULAR HGB CONC 33 G/DL (32-36); MEAN CORPUSCULAR VOLUME 91 FL (80-99); MEAN PLATELET VOLUME 10.2 FL (7.4-10.4); MONOCYTES # (AUTO) 1.4 X 10^3 (0.0-1.0); MONOCYTES % (AUTO) 12 % (0-12); NEUTROPHILS # (AUTO) 7.6 X 10^3 (1.8-7.8); NEUTROPHILS % (AUTO) 63 % (42-75); PLATELET COUNT 235 10^3/uL (130-400); RED BLOOD COUNT 4.25 10^6/uL (4.35-5.85); RED CELL DISTRIBUTION WIDTH 13.6 % (10.0-14.5); WHITE BLOOD COUNT 11.9 10^3/uL (4.3-11.0)
[2018-04-19 05:57] LABS: BUN/CREATININE RATIO 13; CALCIUM 8.7 MG/DL (8.5-10.1); CARBON DIOXIDE 24 MMOL/L (21-32); CHLORIDE 108 MMOL/L (98-107); CREATININE SERUM 0.76 MG/DL (0.60-1.30); GFR ESTIMATED > 60; GLUCOSE 109 MG/DL (70-105); POTASSIUM 4.3 MMOL/L (3.6-5.0); SODIUM 140 MMOL/L (135-145)
[2018-04-19 05:59] LABS: CHOLESTEROL 131 MG/DL (< 200); HDL CHOLESTEROL 31 MG/DL (40-60); TRIGLYCERIDES 59 MG/DL (<150); VLDL CHOLESTEROL 12 MG/DL (5-40)
[2018-04-19] MEDS: VANCOMYCIN 2000 MG/NS 500 ML IVPB IV SCH ×4 (06:30→16:21)
[2018-04-19 08:00] VITALS: BP 133/79
[2018-04-19] MEDS: IBUPROFEN 600 MG (MOTRIN) TAB PO PRN ×2 (08:42→14:38)
[2018-04-19 12:00] VITALS: BP 126/77
[2018-04-19] MEDS ORDERED: ESCI10TA55 PO (12:20)
[2018-04-19] MEDS ORDERED: ALPR0.254 PO (12:20)
[2018-04-19] MEDS ORDERED: LOSA1TAB26 PO (12:20)
--- NOTE | 2018-04-19 12:25 | History & Physical-Hospitalist ---
History of Present Illness HPI/Chief Complaint CC: Lower extremity cellulitis HPI: This is a 42-year-old white female clinic patient of Dr. Nichole with a past medical history of depression and hypertension and anxiety who presents to the ER with worsening redness in his legs that had just begun when he noticed the bushes he was trimming cause cuts on his legs and it seemingly worsened by the hour so he arrived in the ER with severe lower extremity cellulitis and required admission to the hospital for IV antibiotics due to the rapid progression of the infection. Currently the rash is much improved and Dr. Wright was consulted in case this was any type of necrotizing fasciitis infection but it appears he is responding well to vancomycin and Zosyn and overall feels much better. He is not mobilizing well so Lovenox will be given for DVT prophylaxis. I did review his home medication list from the external medical pharmacy history and restarted those at his request. Source: patient Date Seen 04/19/18 Time Seen by Provider: 11:00 Attending Physician Nisreen Beltran DO PCP Loreto Nichole MD Referring Physician Date of Admission April 18, 2018 at 15:44 Home Medications & Allergies Home Medications Reviewed patient Home Medication Reconciliation performed by pharmacy medication reconciliations photonics technician and/or nursing. Patients Allergies have been reviewed. Allergies Allergies Coded Allergies No Known Drug Allergies (Unverified07/03/12) Past Zhyolsx-Egbwqz-Sqxxid Hx Past Med/Social Hx: Reviewed Nursing Past Med/Soc Hx, Reviewed and Corrections made Patient Social History Employed/Student: employed ([employer]) Alcohol Use: Occasionally Uses Number of Drinks Today: 0 Alcohol Beverage of Choice: Whiskey Recreational Drug Use: No Smoking Status: Never a Smoker Physical Abuse Screen: No Sexual Abuse: No Recent Foreign Travel: No Contact w/other who traveled: No Recent Hopitalizations: No Recent Infectious Disease Expo: No Seasonal Allergies Seasonal Allergies: No Past Medical History Surgeries: Abdominal Cardiac: Hypertension Psychosocial: Anxiety History of Blood Disorders: No Adverse Reaction to Blood Anderson: No Family History No Pertinent Family Hx Review of Systems Constitutional: see HPI, fever EENTM: no symptoms reported Respiratory: no symptoms reported Cardiovascular: no symptoms reported Gastrointestinal: no symptoms reported Genitourinary: no symptoms reported Musculoskeletal: muscle cramps (legs) Skin: see HPI, change in color, rash Psychiatric/Neurological: Anxiety, Depressed All Other Systems Reviewed Negative Unless Noted: Yes Physical Exam Physical Exam Vital Signs Vital Signs - First Documented 04/18/18 04/18/18 14:26 17:00 Temp 99.9 Pulse 101 Resp 20 B/P (MAP) 130/85 (100) Pulse Ox 94 O2 Delivery Room Air Capillary Refill : Less Than 3 Seconds General Appearance: No Apparent Distress, WD/WN Eyes: Bilateral Eye Normal Inspection, Bilateral Eye PERRL HEENT: PERRL/EOMI, Normal ENT Inspection, Pharynx Normal Neck: Full Range of Motion, Normal Inspection, Non Tender, Supple, Carotid Bruit Respiratory: Chest Non Tender, Lungs Clear, Normal Breath Sounds, No Accessory Muscle Use, No Respiratory Distress Cardiovascular: Regular Rate, Rhythm, No Edema, No Gallop, No JVD, No Murmur, Normal Peripheral Pulses Gastrointestinal: Normal Bowel Sounds, No Organomegaly, No Pulsatile Mass, Non Tender, Soft Back: Normal Inspection, No CVA Tenderness, No Vertebral Tenderness Extremity: Normal Capillary Refill, Normal Inspection, Normal Range of Motion, Non Tender, No Calf Tenderness, No Pedal Edema Neurologic/Psychiatric: Alert, Oriented x3, No Motor/Sensory Deficits, Normal Mood/Affect Skin: Normal Color, Warm/Dry, Rash (lower legs erythema and warm to touch) Lymphatic: No Adenopathy Results Results/Procedures Labs Laboratory Tests 04/18/18 14:42 04/19/18 05:25 Patient resulted labs reviewed. Assessment/Plan Admission Diagnosis Assessment: Rapidly progressive lower extremity cellulitis requiring IV antibiotics of vancomycin and Zosyn Hypertension Anxiety Depression Plan: IV abx Monitor closely Lovenox Admission Status: Inpatient Order (span 2 midnights) Reason for Inpatient Admission: IV abx required for at least 2 days for severe cellulitis Diagnosis/Problems Diagnosis/Problems (1) Sepsis Status: Acute Qualifiers: Sepsis type: sepsis due to unspecified organism Qualified Codes: A41.9 - Sepsis, unspecified organism (2) Bilateral lower leg cellulitis Status: Acute (3) Hypertension Status: Chronic (4) Anxiety Status: Chronic (5) Depression Status: Chronic Qualifiers: Depression Type: unspecified Qualified Codes: F32.9 - Major depressive disorder, single episode, unspecified (6) PVCs (premature ventricular contractions) Status: Resolved Clinical Quality Measures DVT/VTE Risk/Contraindication: Risk Factor Score Per Nursin RFS Level Per Nursing on Admit: 4+=Very High NISREEN BELTRAN DO April 19, 2018 12:25
[2018-04-19] MEDS: ACETAMINOPHEN 500 MG TAB (TYLENOL) PO PRN ×2 (12:29→20:41)
[2018-04-19] MEDS: ALPRAZolam 0.25 MG (XANAX) TAB PO SCH ×2 (13:13→16:21)
[2018-04-19] MEDS: ENOXAPARIN 40 MG/0.4 ML (LOVENOX) SYR SC SCH (14:37)
--- NOTE | 2018-04-19 14:37 | Consultation ---
History of Present Illness History of Present Illness Patient Consulted On(phyllis/time) 04/19/18 14:31 Time Seen by Provider: 14:09 History of Present Illness Surgery asked to consult regarding B/L LE cellulitis. HPI per ED: This 42-year-old gentleman was referred to the emergency room by [facility] because of irregular heartbeat and tachycardia. Patient had presented there because of erythema over the anterior lower legs bilaterally with pain. Symptoms have been present for about 3 days. He also has scratches over the lower legs from trimming some bushes/brush. He states his noted he was breathing "funny" in the night the last 2 nights. He states he woke last night with bad heartburn but he also had several alcoholic beverages and barbecue and presumed this was heartburn related to that. He had nausea last night without vomiting. He denies any chest pain today or shortness of breath. The erythema on his legs has been intermittent but overall worsening over the past 3 days. Patient notes recent travel including travel to [place] last week and to [place] 6 weeks ago. He is afebrile. Frequent PVCs are noted on the nuclear monitoring technician. Pt states yesterday the pain in his legs was 8 out of 10 and today its "a two". He couldn't walk because of pain, but feels much better today. He states legs were warm, but they are not today. Pt describes pain as a dull ache, with fullness and heaviness. Allergies and Home Medications Allergies Coded Allergies: No Known Drug Allergies (Unverified , 07/03/12) Home Medications Alprazolam 0.25 Mg Tablet, 0.25 EA PO Q6H, (Reported) Doxycycline Hyclate 100 Mg Capsule, 1 EACH PO BID Prescribed by: RICO MALONE on 07/03/122044 Escitalopram Oxalate 10 Mg Tablet, 10 EA PO DAILY, (Reported) Ibuprofen 200 Mg Tablet, 400 MG PO PRN, (Reported) Losartan/Hydrochlorothiazide 1 Each Tablet, 100 EA PO DAILY, (Reported) Patient Home Medication List Home Medication List Reviewed: Yes Past Twuucoj-Yeatkv-Grcxoy Hx Patient Social History Alcohol Use: Occasionally Uses Number of Drinks Today: 0 Recreational Drug Use: No Smoking Status: Never a Smoker Recent Foreign Travel: No Contact w/Someone Who Travel: No Recent Infectious Disease Expo: No Recent Hopitalizations: No Physical Abuse Screen: No Sexual Abuse: No Seasonal Allergies Seasonal Allergies: No Surgeries History of Surgeries: Yes (hernia repair) Surgeries: Abdominal Respiratory History of Respiratory Disorde: No Cardiovascular History of Cardiac Disorders: Yes Cardiac Disorders: Hypertension Neurological History of Neurological Disord: No Genitourinary History of Genitourinary Disor: No Gastrointestinal History of Gastrointestinal Di: No Musculoskeletal History of Musculoskeletal Dis: No Endocrine History of Endocrine Disorders: No HEENT History of HEENT Disorders: No Cancer History of Cancer: No Psychosocial History of Psychiatric Problem: Yes Behavioral Health Disorders: Anxiety Integumentary History of Skin or Integumenta: No Blood Transfusions History of Blood Disorders: No Adverse Reaction to a Blood Tr: No Family Medical History Significant Family History: Cancer (Brother has brain cancer), Cerebral Aneurysm (father) Review of Systems-General Constitutional: chills, diaphoresis, malaise, weakness EENTM: No blurred vision, No double vision, No mouth pain, No mouth swelling, No epistaxis, No throat pain, No throat swelling Respiratory: No cough, No dyspnea on exertion, No hemoptysis Cardiovascular: No chest pain, No edema; palpitations Gastrointestinal: No abdominal pain, No constipation, No diarrhea, No jaundice , No vomiting Genitourinary: No dysuria, No frequency, No hematuria Musculoskeletal: joint pain, joint swelling, muscle stiffness Skin: see HPI, rash Psychiatric/Neurological: Anxiety; Denies Depressed, Denies Seizure, Denies Tingling, Denies Tremors Other pt denies any abnormal bleeding or bruising, no heat or cold intolerance Physical Exam-General Problems Physical Exam Vital Signs Vital Signs - First Documented 04/18/18 04/18/18 14:26 17:00 Temp 99.9 Pulse 101 Resp 20 B/P (MAP) 130/85 (100) Pulse Ox 94 O2 Delivery Room Air Capillary Refill : Less Than 3 Seconds General Appearance: WD/WN, no apparent distress Eyes: Bilateral Eye PERRL, Bilateral Eye EOMI HEENT: pharynx normal; No scleral icterus (R), No scleral icterus (L), No pale conjunctivae (R), No pale conjunctivae (L) Neck: non-tender, full range of motion, supple, normal inspection Respiratory: chest non-tender, lungs clear, normal breath sounds, no respiratory distress, no accessory muscle use Cardiovascular: regular rate, rhythm, no edema, no murmur Gastrointestinal: normal bowel sounds, non tender, soft, no organomegaly, no pulsatile mass Rectal: deferred Back: no CVA tenderness, no vertebral tenderness Extremities: normal range of motion, no pedal edema, no calf tenderness, normal capillary refill, other (bilateral erythema bigger on left than right; right is about 10 x 10cm, left goes from ankle to just below knee and about 10cm wide. No fluctuance or obvious area of fluid collection. Of note the erythema appears to be outside of lines drawn on pt's skin yesterday. Some small scratches but not obvious starting point for the erythema) Skin: normal color, warm/dry Lymphatic: no adenopathy (neck, axilla or groin.) Data Review Labs Laboratory Tests 04/18/18 14:42: White Blood Count 13.0H, Red Blood Count 4.42, Hemoglobin 14.0, Hematocrit 40, Mean Corpuscular Volume 90, Mean Corpuscular Hemoglobin 32, Mean Corpuscular Hemoglobin Concent 35, Red Cell Distribution Width 13.7, Platelet Count 261, Mean Platelet Volume 10.3, Neutrophils (%) (Auto) 63, Lymphocytes (%) (Auto) 23 , Monocytes (%) (Auto) 14H, Eosinophils (%) (Auto) 1, Basophils (%) (Auto) 0, Neutrophils # (Auto) 8.2H, Lymphocytes # (Auto) 2.9, Monocytes # (Auto) 1.8H, Eosinophils # (Auto) 0.1, Basophils # (Auto) 0.0, Erythrocyte Sedimentation Rate 11, Prothrombin Time 14.2, INR Comment 1.1, Activated Partial Thromboplast Time 29, D-Dimer 0.35, Sodium Level 137, Potassium Level 4.5, Chloride Level 103 , Carbon Dioxide Level 22, Anion Gap 12, Blood Urea Nitrogen 12, Creatinine 0.96 , Estimat Glomerular Filtration Rate > 60, BUN/Creatinine Ratio 13, Glucose Level 86, Calcium Level 9.4, Magnesium Level 2.4, Total Bilirubin 1.7H, Aspartate Amino Transf (AST/SGOT) 34, Alanine Aminotransferase (ALT/SGPT) 44, Alkaline Phosphatase 54, Myoglobin 77.5, Troponin I < 0.30, C-Reactive Protein High Sensitivity 6.64H, Total Protein 7.7, Albumin 4.3 04/18/18 15:29: Lactic Acid Level 1.88 04/19/18 05:25: White Blood Count 11.9H, Red Blood Count 4.25L, Hemoglobin 12.7L, Hematocrit 39L , Mean Corpuscular Volume 91, Mean Corpuscular Hemoglobin 30, Mean Corpuscular Hemoglobin Concent 33, Red Cell Distribution Width 13.6, Platelet Count 235, Mean Platelet Volume 10.2, Neutrophils (%) (Auto) 63, Lymphocytes (%) (Auto) 22 , Monocytes (%) (Auto) 12, Eosinophils (%) (Auto) 2, Basophils (%) (Auto) 0, Neutrophils # (Auto) 7.6, Lymphocytes # (Auto) 2.7, Monocytes # (Auto) 1.4H, Eosinophils # (Auto) 0.2, Basophils # (Auto) 0.0, Sodium Level 140, Potassium Level 4.3, Chloride Level 108H, Carbon Dioxide Level 24, Anion Gap 8, Blood Urea Nitrogen 10, Creatinine 0.76, Estimat Glomerular Filtration Rate > 60, BUN/ Creatinine Ratio 13, Glucose Level 109H, Calcium Level 8.7, C-Reactive Protein High Sensitivity 10.10H, Triglycerides Level 59, Cholesterol Level 131, LDL Cholesterol Direct 91, VLDL Cholesterol 12, HDL Cholesterol 31L Assessment/Plan Assessment/Plan Assessment/Plan B/L LE Cellulitis HTN Anxiety I do not see any reason for surgical intervention at this time; cannot find an obvious fluid collection. I agree with continuing IV ABX, pt symptoms are improving but the erythema on the legs seem to be slightly worse. Erythema appears to extend about 3cm outside previous lines. If it continues to grow would order US or CT of LE. Pain control and encourage pt to ambulate. I will follow along, thank you for this consult. Clinical Quality Measures DVT/VTE Risk/Contraindication: Risk Factor Score Per Nursin RFS Level Per Nursing on Admit: 4+=Very High CHRIS KANG DO April 19, 2018 14:37
[2018-04-19 16:14] VITALS: BP 129/80
[2018-04-19 19:25] VITALS: BP 145/78
[2018-04-20] VITALS (7 sets, daily range): BP systolic 114–171; BP diastolic 59–86
[2018-04-20] MEDS: NS IV 1000 ML 1,000 ML IV SCH ×3 (01:16→16:06)
[2018-04-20] MEDS: ALPRAZolam 0.25 MG (XANAX) TAB PO SCH ×5 (01:16→23:50)
[2018-04-20] MEDS: ACETAMINOPHEN 500 MG TAB (TYLENOL) PO PRN ×2 (03:17→19:40)
[2018-04-20] MEDS ORDERED: LOSARTAN 100 MG (COZAAR) TABLET ONE (03:54)
[2018-04-20] MEDS ORDERED: HYDROCHLOROTHIAZIDE 12.5 MG (HCTZ) CAP ONE (03:55)
[2018-04-20] MEDS: HYDROCHLOROTHIAZIDE 12.5 MG (HCTZ) CAP PO SCH (04:00)
[2018-04-20] MEDS: LOSARTAN 100 MG (COZAAR) TABLET PO SCH (04:01)
[2018-04-20] MEDS: PIPERACILLIN/TAZO 4.5 GM/D5W 100 ML IVPB IV SCH ×6 (04:49→19:40)
[2018-04-20] MEDS: VANCOMYCIN 2000 MG/NS 500 ML IVPB IV SCH ×4 (05:41→17:27)
[2018-04-20 06:31] LABS: BASOPHILS % (AUTO) 0 % (0-10); EOSINOPHILS # (AUTO) 0.2 10^3/uL (0.0-0.3); EOSINOPHILS % (AUTO) 2 % (0-10); HEMATOCRIT 37 % (40-54); HEMOGLOBIN 12.4 G/DL (13.3-17.7); LYMPHOCYTES # (AUTO) 1.9 X 10^3 (1.0-4.0); LYMPHOCYTES % (AUTO) 16 % (12-44); MEAN CORPUSCULAR HEMOGLOBIN 31 PG (25-34); MEAN CORPUSCULAR HGB CONC 34 G/DL (32-36); MEAN CORPUSCULAR VOLUME 91 FL (80-99); MEAN PLATELET VOLUME 10.7 FL (7.4-10.4); MONOCYTES # (AUTO) 1.1 X 10^3 (0.0-1.0); MONOCYTES % (AUTO) 9 % (0-12); NEUTROPHILS # (AUTO) 8.8 X 10^3 (1.8-7.8); NEUTROPHILS % (AUTO) 73 % (42-75); PLATELET COUNT 235 10^3/uL (130-400); RED BLOOD COUNT 4.02 10^6/uL (4.35-5.85); RED CELL DISTRIBUTION WIDTH 13.2 % (10.0-14.5)
[2018-04-20 07:09] LABS: ALANINE AMINOTRANSFERASE 32 U/L (0-55); ALBUMIN 3.7 GM/DL (3.2-4.5); ALKALINE PHOSPHATASE 44 U/L (40-136); BILIRUBIN,TOTAL 1.2 MG/DL (0.1-1.0); BUN/CREATININE RATIO 11; CALCIUM 8.7 MG/DL (8.5-10.1); CARBON DIOXIDE 22 MMOL/L (21-32); CHLORIDE 106 MMOL/L (98-107); CREATININE SERUM 0.73 MG/DL (0.60-1.30); GFR ESTIMATED > 60; GLUCOSE 95 MG/DL (70-105); POTASSIUM 3.9 MMOL/L (3.6-5.0); SODIUM 137 MMOL/L (135-145); TOTAL PROTEIN 6.3 GM/DL (6.4-8.2)
[2018-04-20] MEDS: IBUPROFEN 600 MG (MOTRIN) TAB PO PRN (07:56)
--- NOTE | 2018-04-20 09:09 | Progress Note ---
Subjective Time Seen by Provider: 08:45 Subjective/Events-last exam Pt seen and examined, states he had bad night with fever. Had trouble sleeping. Pain in legs has not gotten worse. Pt denies abdominal pain, no dysuria and no SOB. Review of Systems General: Chills, Night Sweats, Fatigue Pulmonary: No Dyspnea, No Cough Cardiovascular: No: Chest Pain, Palpitations Gastrointestinal: No: Nausea, Vomiting Focused Exam Lactate Level 04/18/18 15:29: Lactic Acid Level 1.88 Objective Exam Vital Signs Date Time Temp Pulse Resp B/P (MAP) Pulse Ox O2 Delivery O2 Flow Rate FiO2 04/20/18 07:53 101.9 81 18 129/59 (82) 95 Room Air 04/20/18 05:51 97.9 76 18 135/82 (99) 97 Room Air 04/20/18 04:39 101.2 04/20/18 04:00 101.8 89 18 171/80 (110) 92 Room Air 04/20/18 03:17 101.3 04/20/18 00:00 100.0 80 19 114/59 (77) 94 Room Air 04/19/18 19:25 98.6 72 24 145/78 (100) 98 Room Air 04/19/18 16:14 97.6 66 14 129/80 (96) 96 Room Air 04/19/18 12:00 97.1 88 20 126/77 (93) 94 Room Air I & O 04/20/18 07:00 Intake Total 1100 ml Balance 1100 ml Capillary Refill : Less Than 3 Seconds General Appearance: No Apparent Distress, WD/WN HEENT: PERRL/EOMI, Pharynx Normal Neck: Full Range of Motion, Supple Respiratory: Chest Non Tender, Lungs Clear, Normal Breath Sounds, No Accessory Muscle Use, No Respiratory Distress Cardiovascular: Regular Rate, Rhythm, No Murmur, Normal Peripheral Pulses Gastrointestinal: normal bowel sounds, non tender, soft, no organomegaly, no pulsatile mass Extremity: Normal Capillary Refill, Normal Inspection, Normal Range of Motion, Non Tender, No Calf Tenderness, No Pedal Edema Neurologic/Psychiatric: Alert, Oriented x3, No Motor/Sensory Deficits, Normal Mood/Affect, maintenance and operations supervisor II-XII Norm as Tested Skin: Normal Color, Warm/Dry, Rash (lower legs erythema (now inside lines) much improved compared to yesterday, still warm to touch (but not really worse than warmth of rest of leg) still no obvious fluctuance or fluid collection) Lymphatic: No Adenopathy Results Lab Laboratory Tests 04/20/18 05:39: White Blood Count 12.0H, Red Blood Count 4.02L, Hemoglobin 12.4L, Hematocrit 37L , Mean Corpuscular Volume 91, Mean Corpuscular Hemoglobin 31, Mean Corpuscular Hemoglobin Concent 34, Red Cell Distribution Width 13.2, Platelet Count 235, Mean Platelet Volume 10.7H, Neutrophils (%) (Auto) 73, Lymphocytes (%) (Auto) 16 , Monocytes (%) (Auto) 9, Eosinophils (%) (Auto) 2, Basophils (%) (Auto) 0, Neutrophils # (Auto) 8.8H, Lymphocytes # (Auto) 1.9, Monocytes # (Auto) 1.1H, Eosinophils # (Auto) 0.2, Basophils # (Auto) 0.0, Sodium Level 137, Potassium Level 3.9, Chloride Level 106, Carbon Dioxide Level 22, Anion Gap 9, Blood Urea Nitrogen 8, Creatinine 0.73, Estimat Glomerular Filtration Rate > 60, BUN/ Creatinine Ratio 11, Glucose Level 95, Calcium Level 8.7, Total Bilirubin 1.2H, Aspartate Amino Transf (AST/SGOT) 16, Alanine Aminotransferase (ALT/SGPT) 32, Alkaline Phosphatase 44, Total Protein 6.3L, Albumin 3.7 Microbiology 04/18/18 Blood Culture - Preliminary, Resulted No growth Assessment/Plan Assessment/Plan Assessment/Plan B/L LE Cellulitis HTN Anxiety Pt is improved from the cellulitis; still no surgical intervention needed; cannot find an obvious fluid collection. Continue IV ABX, pt symptoms are improving and the erythema has improved. Not sure why pt spiked fever last night. ??recheck CXR, blood cultures. Would continue Ppain control and encourage pt to ambulate. Clinical Quality Measures DVT/VTE Risk/Contraindication: Risk Factor Score Per Nursin RFS Level Per Nursing on Admit: 4+=Very High CHRIS KANG DO April 20, 2018 09:09
--- NOTE | 2018-04-20 09:25 | Progress Note ---
Subjective Date Seen by Provider: April 20, 2018 Time Seen by Provider: 08:50 Subjective/Events-last exam PT REPORTS THAT HE IS FEELING BETTER, STILL HAS SOME DISCOMFORT IN HIS CALF AND REDNESS, BUT IT IS BETTER THAN ON ADMISSION. Review of Systems General: No Chills; Fatigue, Malaise Pulmonary: No Dyspnea, No Cough Cardiovascular: No: Chest Pain, Palpitations Gastrointestinal: No: Nausea, Abdominal Pain Genitourinary: No Dysuria Neurological: Weakness Focused Exam Lactate Level 04/18/18 15:29: Lactic Acid Level 1.88 Objective Exam Last Set of Vital Signs Vital Signs Date Time Temp Pulse Resp B/P (MAP) Pulse Ox O2 Delivery O2 Flow Rate FiO2 04/20/18 07:53 101.9 81 18 129/59 (82) 95 Room Air Capillary Refill : Less Than 3 Seconds I&O Intake and Output 04/20/18 00:00 Intake Total 1100 ml Balance 1100 ml Intake Oral 1100 ml # Voids 6 General: Alert, Oriented X3, Cooperative HEENT: Atraumatic Lungs: Clear to Auscultation Heart: Regular Rate Abdomen: Normal Bowel Sounds, Soft Extremities: No Clubbing Skin: Other (ERYTHEMA BILATERAL ANKLES AND LOWER CALF) Psych/Mental Status: Mental Status NL, Mood NL Results Lab Laboratory Tests 04/20/18 05:39: White Blood Count 12.0H, Red Blood Count 4.02L, Hemoglobin 12.4L, Hematocrit 37L , Mean Corpuscular Volume 91, Mean Corpuscular Hemoglobin 31, Mean Corpuscular Hemoglobin Concent 34, Red Cell Distribution Width 13.2, Platelet Count 235, Mean Platelet Volume 10.7H, Neutrophils (%) (Auto) 73, Lymphocytes (%) (Auto) 16 , Monocytes (%) (Auto) 9, Eosinophils (%) (Auto) 2, Basophils (%) (Auto) 0, Neutrophils # (Auto) 8.8H, Lymphocytes # (Auto) 1.9, Monocytes # (Auto) 1.1H, Eosinophils # (Auto) 0.2, Basophils # (Auto) 0.0, Sodium Level 137, Potassium Level 3.9, Chloride Level 106, Carbon Dioxide Level 22, Anion Gap 9, Blood Urea Nitrogen 8, Creatinine 0.73, Estimat Glomerular Filtration Rate > 60, BUN/ Creatinine Ratio 11, Glucose Level 95, Calcium Level 8.7, Total Bilirubin 1.2H, Aspartate Amino Transf (AST/SGOT) 16, Alanine Aminotransferase (ALT/SGPT) 32, Alkaline Phosphatase 44, Total Protein 6.3L, Albumin 3.7 Microbiology 04/18/18 Blood Culture - Preliminary, Resulted No growth Assessment/Plan Assessment/Plan Assess & Plan/Chief Complaint CELLULITIS HYPERTENSION DEPRESSION/ANXIETY CELLULITIS - IMPROVED ON IV ANTIBIOTICS - CONTINUE WITH CURRENT REGIMEN HYPERTENSION - RESUMED HOME MEDICATION DEPRESSION/ANXIETY - RESUMED HOME MEDICATION. Clinical Quality Measures DVT/VTE Risk/Contraindication: Risk Factor Score Per Nursin RFS Level Per Nursing on Admit: 4+=Very High VI BOUDREAUX MD April 20, 2018 09:25
[2018-04-20] MEDS: ENOXAPARIN 40 MG/0.4 ML (LOVENOX) SYR SC SCH (12:17)
[2018-04-20] MEDS ORDERED: ASPI-983 PO (13:20)
[2018-04-20] MEDS ORDERED: MULT-35 PO (13:20)
[2018-04-20] MEDS ORDERED: IBUP-2055 PO (13:20)
[2018-04-20] MEDS ORDERED: OMG1KC PO (13:20)
[2018-04-20] MEDS ORDERED: TROUGH ORDER-PHARMACY XX NR (16:00)
[2018-04-21] VITALS: BP 165/85
[2018-04-21] MEDS: VANCOMYCIN 2000 MG/NS 500 ML IVPB IV SCH ×4 (01:05→08:13)
[2018-04-21] MEDS: NS IV 1000 ML 1,000 ML IV SCH ×2 (01:59→08:09)
[2018-04-21] MEDS: PIPERACILLIN/TAZO 4.5 GM/D5W 100 ML IVPB IV SCH ×6 (04:46→20:41)
[2018-04-21] MEDS: ALPRAZolam 0.25 MG (XANAX) TAB PO SCH ×3 (06:34→18:33)
[2018-04-21 08:06] VITALS: BP 158/90
[2018-04-21] MEDS: LOSARTAN 100 MG (COZAAR) TABLET PO SCH (08:11)
[2018-04-21] MEDS: HYDROCHLOROTHIAZIDE 12.5 MG (HCTZ) CAP PO SCH ×2 (08:11→09:55)
[2018-04-21] MEDS: IBUPROFEN 600 MG (MOTRIN) TAB PO PRN (08:11)
--- NOTE | 2018-04-21 08:22 | Progress Note ---
Subjective Date Seen by Provider: April 21, 2018 Time Seen by Provider: 08:22 Subjective/Events-last exam PT REPORTS THAT HIS LEGS ARE BETTER, BUT HE NOTED THAT HIS BLOOD PRESSURE WAS ELEVATED LAST NIGHT. HE REPORTS THAT HE HAS NO CHEST PAIN, NO SHORTNESS OF BREATH. HE REPORTS THAT HE HAS BEEN FEELING BETTER. Review of Systems General: No Chills, No Fatigue Pulmonary: No Dyspnea, No Cough Cardiovascular: No: Chest Pain, Palpitations Gastrointestinal: No: Nausea, Abdominal Pain Neurological: No: Weakness, Confusion Focused Exam Lactate Level 04/18/18 15:29: Lactic Acid Level 1.88 Objective Exam Last Set of Vital Signs Vital Signs Date Time Temp Pulse Resp B/P (MAP) Pulse Ox O2 Delivery O2 Flow Rate FiO2 04/21/18 08:06 98.5 63 18 158/90 (112) 95 Room Air Capillary Refill : Less Than 3 Seconds I&O Intake and Output 04/21/18 00:00 Intake Total 2440 ml Balance 2440 ml Intake Oral 2440 ml # Voids 11 # Bowel Movements 1 General: Alert, Oriented X3, Cooperative HEENT: Atraumatic Lungs: Clear to Auscultation, Normal Air Movement Heart: Regular Rate Abdomen: Normal Bowel Sounds, Soft Extremities: No Clubbing Skin: Other (ERYTHEMA OF LOWER LEGS/ANKLES) Psych/Mental Status: Mental Status NL, Mood NL Results Lab Laboratory Tests 04/20/18 16:00: Vancomycin Level Trough 6.9L Microbiology 04/18/18 Blood Culture - Preliminary, Resulted No growth Assessment/Plan Assessment/Plan Assess & Plan/Chief Complaint CELLULITIS HYPERTENSION DEPRESSION/ANXIETY CELLULITIS - IMPROVED ON IV ANTIBIOTICS - CONTINUE WITH CURRENT REGIMEN - LIKELY DISCHARGE TOMORROW HYPERTENSION - RESUMED HOME MEDICATION DEPRESSION/ANXIETY - RESUMED HOME MEDICATION. Clinical Quality Measures DVT/VTE Risk/Contraindication: Risk Factor Score Per Nursin RFS Level Per Nursing on Admit: 4+=Very High VI BOUDREAUX MD April 21, 2018 08:22
[2018-04-21 09:08] LABS: HEMOGLOBIN 13.1 G/DL (13.3-17.7); RED BLOOD COUNT 4.24 10^6/uL (4.35-5.85); RED CELL DISTRIBUTION WIDTH 13.3 % (10.0-14.5); WHITE BLOOD COUNT 9.4 10^3/uL (4.3-11.0)
[2018-04-21 09:31] LABS: ALANINE AMINOTRANSFERASE 27 U/L (0-55); ALBUMIN 3.8 GM/DL (3.2-4.5); ALKALINE PHOSPHATASE 45 U/L (40-136); BILIRUBIN,TOTAL 0.7 MG/DL (0.1-1.0); BUN/CREATININE RATIO 11; CALCIUM 9.1 MG/DL (8.5-10.1); CARBON DIOXIDE 24 MMOL/L (21-32); CHLORIDE 107 MMOL/L (98-107); CREATININE SERUM 0.75 MG/DL (0.60-1.30); GFR ESTIMATED > 60; GLUCOSE 87 MG/DL (70-105); POTASSIUM 3.8 MMOL/L (3.6-5.0); SODIUM 141 MMOL/L (135-145); TOTAL PROTEIN 6.8 GM/DL (6.4-8.2)
[2018-04-21] MEDS: ASPIRIN E.C. 81 MG (ECOTRIN) TAB PO SCH (09:55)
--- NOTE | 2018-04-21 10:24 | Progress Note ---
Subjective Time Seen by Provider: 10:15 Subjective/Events-last exam Pt seen and examined, no complaints today. Tolerating diet, ambulating without difficulty, no pain. Review of Systems General: No Chills, No Night Sweats Pulmonary: No Dyspnea, No Cough Cardiovascular: No: Chest Pain Gastrointestinal: No: Nausea, Vomiting Focused Exam Lactate Level 04/18/18 15:29: Lactic Acid Level 1.88 Objective Exam Vital Signs Date Time Temp Pulse Resp B/P (MAP) Pulse Ox O2 Delivery O2 Flow Rate FiO2 04/21/18 08:06 98.5 63 18 158/90 (112) 95 Room Air 04/21/18 00:00 98.2 67 17 165/85 (111) 93 Room Air 04/20/18 20:10 97.9 04/20/18 19:45 100.5 80 20 137/76 (96) 92 Room Air 04/20/18 19:40 100.5 04/20/18 15:35 100.7 75 18 137/86 (103) 92 Room Air 04/20/18 12:19 98.6 56 20 120/67 (84) 93 Room Air I & O 04/21/18 07:00 Intake Total 4260 ml Balance 4260 ml Capillary Refill : Less Than 3 Seconds General Appearance: No Apparent Distress, WD/WN HEENT: PERRL/EOMI, Moist Mucous Membranes Neck: Full Range of Motion, Supple Respiratory: Chest Non Tender, Lungs Clear, Normal Breath Sounds, No Accessory Muscle Use, No Respiratory Distress Cardiovascular: Regular Rate, Rhythm, No Murmur, Normal Peripheral Pulses Gastrointestinal: normal bowel sounds, non tender, soft, no organomegaly, no pulsatile mass Extremity: Normal Capillary Refill, Normal Inspection, Normal Range of Motion, Non Tender, No Calf Tenderness, No Pedal Edema Neurologic/Psychiatric: Alert, Oriented x3, No Motor/Sensory Deficits, Normal Mood/Affect, immigration judge II-XII Norm as Tested Skin: Normal Color, Warm/Dry, Other (no erythema on legs, no warmth) Lymphatic: No Adenopathy Results Lab Laboratory Tests 04/20/18 16:00: Vancomycin Level Trough 6.9L 04/21/18 08:59: White Blood Count 9.4, Red Blood Count 4.24L, Hemoglobin 13.1L, Hematocrit 38L, Mean Corpuscular Volume 90, Mean Corpuscular Hemoglobin 31, Mean Corpuscular Hemoglobin Concent 35, Red Cell Distribution Width 13.3, Platelet Count 275, Mean Platelet Volume 10.0, Sodium Level 141, Potassium Level 3.8, Chloride Level 107, Carbon Dioxide Level 24, Anion Gap 10, Blood Urea Nitrogen 8, Creatinine 0.75, Estimat Glomerular Filtration Rate > 60, BUN/Creatinine Ratio 11, Glucose Level 87, Calcium Level 9.1, Total Bilirubin 0.7, Aspartate Amino Transf (AST/SGOT) 16, Alanine Aminotransferase (ALT/SGPT) 27, Alkaline Phosphatase 45, C-Reactive Protein High Sensitivity 9.14H, Total Protein 6.8, Albumin 3.8 Microbiology 04/18/18 Blood Culture - Preliminary, Resulted No growth Assessment/Plan Assessment/Plan Assessment/Plan Cellulitis - resolved, Medicine keeping pt for one more day on IV ABX, no surgery needed will sign off. Thank you for consult, will reconsult if needed. Clinical Quality Measures DVT/VTE Risk/Contraindication: Risk Factor Score Per Nursin RFS Level Per Nursing on Admit: 4+=Very High CHRIS KANG DO April 21, 2018 10:24
[2018-04-21] MEDS: ACETAMINOPHEN 500 MG TAB (TYLENOL) PO PRN (12:22)
[2018-04-21] MEDS: ENOXAPARIN 40 MG/0.4 ML (LOVENOX) SYR SC SCH (13:17)
[2018-04-21] MEDS ORDERED: TROUGH ORDER-PHARMACY XX NR (16:00)
[2018-04-21 16:30] VITALS: BP 149/92
[2018-04-22] VITALS: BP 126/69
[2018-04-22] MEDS: ALPRAZolam 0.25 MG (XANAX) TAB PO SCH ×2 (00:31→06:52)
[2018-04-22] MEDS: PIPERACILLIN/TAZO 4.5 GM/D5W 100 ML IVPB IV SCH ×2 (04:16)
[2018-04-22] MEDS: ACETAMINOPHEN 500 MG TAB (TYLENOL) PO PRN (04:17)
[2018-04-22] MEDS: LOSARTAN 100 MG (COZAAR) TABLET PO SCH (08:30)
[2018-04-22] MEDS: HYDROCHLOROTHIAZIDE 12.5 MG (HCTZ) CAP PO SCH (08:30)
[2018-04-22] MEDS: ASPIRIN E.C. 81 MG (ECOTRIN) TAB PO SCH (08:30)
[2018-04-22 08:40] VITALS: BP 119/66
[2018-04-22] MEDS ORDERED: AMOX1TAB12 PO (08:53)
[2018-04-22] MEDS ORDERED: LACT1CAP87 PO (08:53)
--- NOTE | 2018-04-22 08:54 | Discharge Inst-Complex ---
PDI Med Rec & Follow Up Appt. New Medications: Amoxicillin/Potassium Clav (Amox Tr-K Clv 875-125 mg Tab) 1 Each Tablet 1 EACH PO BID, #14 TAB Lactobacillus Acidophilus (Acidophilus Lactobacilli) 1 Each Capsule 1 EACH PO BID, #30 CAP Continued Medications: Alprazolam (Alprazolam) 0.25 Mg Tablet 0.25 MG PO Q6H PRN for ANXIETY, TAB Aspirin (Aspirin EC) 81 Mg Tablet.dr 81 MG PO DAILY, TAB Escitalopram Oxalate (Escitalopram Oxalate) 10 Mg Tablet 10 MG PO HS, TAB Ibuprofen (Ibuprofen) 200 Mg Tablet 400 MG PO Q6H PRN for PAIN-MILD, TAB Losartan/Hydrochlorothiazide (Losartan-Hctz 100-12.5 mg Tab) 1 Each Tablet 1 TAB PO DAILY, TAB Multivitamin (Daily Multiple Vitamin) 1 Each Tablet 1 TAB PO DAILY, TAB [place] 3 Polyunsat Fatty Acids (Fish Oil 1,000 mg Capsule) 1,000 Mg Cap 1000 MG PO DAILY, CAP Prescription: Transmitted to Pharmacy Activity, Diet and PDI Resume Normal Activity: Yes Discharge Diet: Regular Diet Driving Instructions: You May Drive Return to The Hospital For: any concern for lifethreatening illness or injury Symptoms to Reoprt to : Appetite Changes, Fever Over 101 Degrees F, Pain/ Pressure in Chest, Diarrhea(Persistant) For Problems or Questions: Contact Your Physician, Go to Emergency Room Infection Signs and Symptoms: Increased Redness, Increased Swelling, Temperature Above 101 F VI BOUDREAUX MD April 22, 2018 08:54
--- NOTE | 2018-04-22 08:58 | Discharge Summary ---
Diagnosis/Chief Complaint Date of Admission April 18, 2018 at 15:44 Date of Discharge Discharge Date: April 22, 2018 Discharge Time: 929 Admission Diagnosis Admission Diagnosis CELLULITIS HYPERTENSION DEPRESSION/ANXIETY Discharge Diagnosis CELLULITIS HYPERTENSION DEPRESSION/ANXIETY Reason Hospital Visit This is a 42-year-old white female clinic patient of Dr. Nichole with a past medical history of depression and hypertension and anxiety who presents to the ER with worsening redness in his legs that had just begun when he noticed the bushes he was trimming cause cuts on his legs and it seemingly worsened by the hour so he arrived in the ER with severe lower extremity cellulitis and required admission to the hospital for IV antibiotics due to the rapid progression of the infection. Currently the rash is much improved and Dr. Wright was consulted in case this was any type of necrotizing fasciitis infection but it appears he is responding well to vancomycin and Zosyn and overall feels much better. He is not mobilizing well so Lovenox will be given for DVT prophylaxis. I did review his home medication list from the external medical pharmacy history and restarted those at his request. Discharge Summary Consultations surgical consult - dr grover Discharge Physical Examination Allergies: Coded Allergies: No Known Drug Allergies (Unverified , 07/03/12) Vitals & I&Os Vital Signs Date Time Temp Pulse Resp B/P (MAP) Pulse Ox O2 Delivery O2 Flow Rate FiO2 04/22/18 08:40 97.5 56 16 119/66 (83) 93 Room Air General Appearance: Alert, Oriented X3, Cooperative HEENT: Atraumatic, PERRLA Respiratory: Clear to Auscultation Cardiovascular: Regular Rate Abdominal: Normal Bowel Sounds, Soft, No Tenderness Extremities: No Clubbing, No Cyanosis, Other (erythema almost completely resolved on lower extremities bilaterally, still mildly ttp) Skin: No Breakdown Neuro: Strength at 5/5 X4 Ext, Cranial Nerves 3-12 NL Psych/Mental Status: Mental Status NL, Mood NL Hospital Course CELLULITIS HYPERTENSION DEPRESSION/ANXIETY CELLULITIS - IMPROVED ON IV ANTIBIOTICS - vancomycin stopped yesterday - pt to be discharged on 7 more days of antibiotics - augmentin sent to his pharmacy electronically - he is to be on probiotic bid x 7 more days as well. HYPERTENSION - RESUMED HOME MEDICATION DEPRESSION/ANXIETY - RESUMED HOME MEDICATION. pt to be seen in clinic in 1 week from discharge he is okay to return to work tomorrow. Discharge Condition at discharge improved Instructions to patient/family Please see electronic discharge instructions given to patient. Discharge Medications Reviewed and agree with Discharge Medication list on patient's Discharge Instruction sheet Medication List: Active Scripts Active Amox Tr-K Clv 875-125 mg Tab (Amoxicillin/Potassium Clav) 1 Each Tablet 1 Each PO BID Acidophilus Lactobacilli (Lactobacillus Acidophilus) 1 Each Capsule 1 Each PO BID Reported Daily Multiple Vitamin (Multivitamin) 1 Each Tablet 1 Tab PO DAILY Fish Oil 1,000 mg Capsule ([place] 3 Polyunsat Fatty Acids) 1,000 Mg Cap 1,000 Mg PO DAILY Aspirin EC (Aspirin) 81 Mg Tablet.dr 81 Mg PO DAILY Ibuprofen 200 Mg Tablet 400 Mg PO Q6H PRN Losartan-Hctz 100-12.5 mg Tab (Losartan/Hydrochlorothiazide) 1 Each Tablet 1 Tab PO DAILY Alprazolam 0.25 Mg Tablet 0.25 Mg PO Q6H PRN Escitalopram Oxalate 10 Mg Tablet 10 Mg PO HS Clinical Quality Measures DVT/VTE Risk/Contraindication: Risk Factor Score Per Nursin RFS Level Per Nursing on Admit: 4+=Very High VI NICHOLE MD April 22, 2018 08:58
[2018-04-22 10:30] VITALS: BP 120/66
== END 2018-04-22 10:30 | disposition home or self-care (01) | DRG 872 ==
LOC: EDUNIT# 13:59 → ER 14:01 → 4TH 15:44
PROVIDERS: ADMIT Internal Medicine; ATTEND Internal Medicine
DX: A41.9 Sepsis, unspecified organism (principal); L03.116 Cellulitis of left lower limb; L03.115 Cellulitis of right lower limb; S80.812A Abrasion, left lower leg, initial encounter; S80.811A Abrasion, right lower leg, initial encounter; I10 Essential (primary) hypertension; F41.9 Anxiety disorder, unspecified; F32.9 Major depressive disorder, single episode, unspecified; I49.3 Ventricular premature depolarization; R11.2 Nausea with vomiting, unspecified; W60.XXXA Contact with nonvenomous plant thorns and spines and sharp leaves, initial encounter; Y93.H2 Activity, gardening and landscaping
CPT/HCPCS: 36415; 71045; 80048; 80053; 80061; 80202; 83605; 83735; 83874; 84484; 85025; 85027; 85379; 85610; 85652; 85730; 86141; 87040; 93005; 93041; 96361; 96374

== ENCOUNTER → 2019-09-05 | Outpatient (CLI) | payer BC ==
[~2019-09-05] MED LIST changes: +ALPR0.254 PO; +AMOX1TAB12 PO; +ASPI-983 PO; +ESCI10TA55 PO; +IBUP-2055 PO; +LACT1CAP87 PO; +LOSA1TAB26 PO; +MULT-35 PO; +OMG1KC PO
--- NOTE | 2019-09-05 10:08 | Diagnostic Imaging Report ---
INDICATION: Left SI joint pain and radiculopathy. TIME OF EXAM: 9:54 AM FINDINGS: Curvature and alignment of the lumbar spine is normal. Vertebral body heights and disc spaces are fairly well preserved. There is minimal anterior spurring L3-L4 and L4-L5 levels. No fractures are identified. IMPRESSION: No acute bony abnormality is detected. Dictated by: Dictated on workstation # [id number]
== END ==
LOC: RAD 09:42
PROVIDERS: ATTEND Chiropractor
DX: M53.3 Sacrococcygeal disorders, not elsewhere classified (principal); M54.10 Radiculopathy, site unspecified; M54.5 Low back pain; M79.10 Myalgia, unspecified site; R29.3 Abnormal posture
CPT/HCPCS: 72100

== ENCOUNTER → 2019-09-19 | Outpatient (CLI) | payer BC ==
--- NOTE | 2019-09-19 10:30 | Diagnostic Imaging Report ---
PROCEDURE: MRI lumbar spine. TECHNIQUE: Multiplanar, multisequence MRI of the lumbar spine was performed without contrast. INDICATION: Chronic low back pain, increasing over the last few months. No prior studies are available for comparison. FINDINGS: Curvature and alignment of the lumbar spine is normal. Vertebral body heights are well-maintained. Marrow signal intensity is normal. No geographic marrow lesion or acute compression fracture is seen. There is some loss of height and signal intensity to the L5-S1 intervertebral disc compatible with degenerative disc disease. Conus is unremarkable at the T12-L1 level. T12-L1: Central canal is widely patent. Neural foramina are patent. L1-L2: The central canal and neural foramina are widely patent. L2-L3: Central canal and neural foramina are widely patent. L3-L4: Central canal and neural foramina are widely patent. L4-L5: There is some flattening of the ventral thecal sac by annular bulging, but central canal is patent. Neural foramina appear patent. L5-S1: There is wide-based midline/posterior lateral disc bulge. This indents the ventral thecal sac. This produces significant narrowing of the left lateral recess as well as moderate narrowing of the left neural foramen. There is mild right neural foraminal narrowing. Very mild narrowing of the central canal is seen. Paraspinous tissues are unremarkable. IMPRESSION: L5-S1 degenerative disc disease. There is a prominent wide based disc bulge, as described resulting in mild central canal as well as significant left lateral recess and left neural foraminal stenosis. No acute compression fracture is seen. Dictated by: Dictated on workstation # [id number]
== END ==
LOC: RAD 07:57
PROVIDERS: ATTEND Nurse Practitioner Family
DX: M51.37 Other intervertebral disc degeneration, lumbosacral region (principal); M51.27 Other intervertebral disc displacement, lumbosacral region; M48.07 Spinal stenosis, lumbosacral region
CPT/HCPCS: 72148

== ENCOUNTER → 2023-06-01 | Outpatient (CLI) | payer BC ==
[~2023-06-01] MED LIST changes: +ALPR.25T PO; -ALPR0.254 PO; +ASPI-1238 PO; -ASPI-983 PO; +ESCI-2 PO; -ESCI10TA55 PO; -IBUP-2055 PO; +IBUP-2473 PO
== END ==
LOC: CARD 11:12
PROVIDERS: ATTEND Family Medicine
DX: I49.9 Cardiac arrhythmia, unspecified (principal)
CPT/HCPCS: 93005